=== PATIENT | female | born 1985 ===

== ENCOUNTER 2022-01-17 10:59 | Emergency (ER) | payer OTHER, SELFPAY ==
--- NOTE | ~2022-01-17 | CT_ITS ---
EXAMINATION: CT ABDOMEN AND PELVIS WITHOUT CONTRAST CLINICAL INFORMATION: Left lower quadrant pain COMPARISON: None TECHNIQUE: Multidetector volumetric imaging was performed from the superior aspect of the liver through the pubic symphysis. Sagittal and coronal reformatted images were obtained on the technologist's workstation. This CT examination was performed using dose optimization techniques as appropriate, variously including the following: *Automated exposure control *Adjustment of mA and/or kV according to patient size (this includes techniques or standardized protocols for targeted exams where dose is matched to indication/reason for exam; i.e. extremities or head) *Use of iterative reconstruction technique DLP: 514 mGy-cm FINDINGS: LUNG BASES: The visualized lung bases are unremarkable. LIVER, GALLBLADDER, AND BILIARY TREE: The liver is normal in size, shape, and attenuation. No focal hepatic lesion or biliary ductal dilatation is present. The gallbladder is unremarkable with no evidence of radiopaque gallstones, gallbladder wall thickening, or obvious pericholecystic inflammatory changes. PANCREAS: Unremarkable. SPLEEN: Unremarkable. ADRENAL GLANDS: Unremarkable. KIDNEYS AND URETERS: The kidneys are normal in size, shape, and attenuation. No hydronephrosis, hydroureter, or calculi seen. No perinephric stranding. BLADDER: Unremarkable. GASTROINTESTINAL TRACT: There is focal circumferential thickening of a short segment of colon centered at the descending colon sigmoid junction. There are no diverticula. There is mild pericolonic stranding but no definite fluid collection or extraluminal air. Pattern is worrisome for a mass lesion such as adenocarcinoma as opposed to focal colitis based on overall relative short segment of involvement and morphologic changes. No obstruction. No other focal abnormality. Normal appendix. ABDOMINAL WALL: No significant hernia is appreciated. LYMPH NODES: Normal. VASCULAR: Unremarkable. PELVIC VISCERA: Unremarkable. OSSEOUS STRUCTURES: Unremarkable. CT/CT abdomen pelvis wo IV con IMPRESSION: Circumferential focal thickening left colon as above. Appearance is highly suspicious for colonic adenocarcinoma as opposed to colitis. No diverticular disease. Lower GI assessment indicated. Fleischner guidelines were followed.
[2022-01-17 11:11] VITALS: BP 141/80; PULSE 128; RESP 18; TEMP 35.5; O2SAT 100; BMI 26.4
[2022-01-17 12:51] LABS: MANUAL DIFF FLAG NO
[2022-01-17 12:52] LABS: Basophils Percent Auto 0.2 % (0-2); Eosinophils Absolute Auto 0.1 X10*3/uL (0.0-0.4); Hematocrit 39.4 % (37.0-47.0); Imm Gran Abs Auto 0.04 X10*3/uL (0.00-0.03); Imm Gran Pct Auto 0.4 % (0.0-0.4); Lymphocytes Absolute Auto 1.1 X10*3/uL (1.2-4.9); Lymphocytes Percent Auto 9.5 % (20-40); Mean Corpuscular Hemoglobin 29.6 pg (27.0-33.0); Mean Corpuscular Volume 89.7 fL (80.0-98.0); Mean Platelet Volume 9.3 fL (9.4-12.3); Monocytes Absolute Auto 0.5 X10*3/uL (0.1-1.2); Monocytes Percent Auto 4.6 % (2-11); Neutrophils Absolute Auto 9.6 x10*3/uL (2.0-8.3); Neutrophils Percent Auto 84.3 % (45-73); Platelet Count 321 X10*3/uL (160-400); Red Blood Count 4.39 X10*6/uL (4.20-5.50); Red Cell Distribution Width 12.9 % (11.0-16.0); White Blood Count 11.4 X10*3/uL (4.8-10.8)
[2022-01-17 13:13] LABS: Alanine Aminotransferase 12 U/L (0-31); Albumin Level 4.3 g/dL (3.5-5.0); Alkaline Phosphatase 86 U/L (39-117); Anion Gap 13 (12-20); Aspartate Amino Transferase 18 U/L (5-31); Bilirubin Direct 0.3 mg/dL (0.0-0.5); Bilirubin Total 0.9 mg/dL (0.0-1.0); Blood Urea Nitrogen 10 mg/dL (9-16); Calcium 9.4 mg/dL (8.4-10.2); Carbon Dioxide 27 mmol/L (22-29); Chloride 103 mmol/L (96-108); Creatinine Clr Calc Pharmacy 89.3; Estimated Glomerular Filt Rate > 60; Glucose Random 98 mg/dL (60-115); Lipase 26 U/L (8-78); Potassium 4.2 mmol/L (3.3-5.1); Sodium 139 mmol/L (135-145); Total Protein 7.7 g/dL (6.5-8.0)
--- NOTE | 2022-01-17 19:00 | ED_ITS ---
HPI - Abdominal Pain General Chief Complaint: Nausea/Vomiting/Diarrhea Stated Complaint: Blood in stool Time Seen by Provider: 01/17/22 18:56 Source: patient Mode of arrival: ambulatory Limitations: no limitations History of Present Illness HPI narrative: patient with no significant past medical history had some drinks yesterday noticed pain in lower abdomen followed by loose bowels with slight amount of blood again she had earlier today small amount of bright red blood with lower abdominal pain vomited 1 time at this time complaining of lower abdominal pain with no nausea or vomiting Related Data Previous Rx's Medication Instructions Recorded ciprofloxacin HCl 500 mg tablet 500 mg PO BID #20 tabs 01/17/22 (Cipro) metronidazole 500 mg tablet 500 mg PO BID 10 days #20 tabs 01/17/22 tramadol 50 mg tablet 50 mg PO Q6H PRN pain #20 tabs 01/17/22 Allergies Allergy/AdvReac Type Severity Reaction Status Date / Time No Known Allergies Allergy Verified 01/17/22 11:14 Review of Systems Review of Systems Yes all other systems are reviewed and are negative [facility] Social History Social History Advance Directives: No Advance Directives Information Provided: Yes Physical Exam ED Vital Signs: Vital Signs - 24 hr 01/17/22 11:11 01/17/22 20:21 Temperature 96 F L 98.6 F Pulse Rate 128 H 106 H Respiratory Rate 18 18 Blood Pressure 141/80 H 125/72 Pulse Oximetry 100 100 Oxygen Delivery Method Room Air Room Air BMI result Body Mass Index 26.4 Appearance: Alert. Oriented X3. No acute distress. Eyes: PERRLA, No Nystagmus ENT: Pharynx normal. Oral Mucosa moist Neck: Normal inspection. Neck supple. CVS: Normal heart rate and rhythm. Pulses normal. Respiratory: No respiratory distress. Equal air entry bilateral, no wheezing/rales/rhonchi Abdomen: Soft and deep tenderness left lower quadrant Bowel sounds are present, no mass palpable, no CVA tenderness Skin: Skin warm and dry. Normal skin color. Normal skin turgor. Extremities: No lower extremity edema. No calf tenderness Neuro: Oriented X 3. No motor deficit. No sensory deficit.No cerebellar signs , cranial nerves II-XII intact MDM - Abdominal Pain MDM Narrative Medical decision making narrative: Patient to slight leukocytosis with left lower abdominal pain with slight amount of blood in the stool CT scan done which showed some facial focal thickening of left colon highly suspicious for colonic adenoma carcinoma versus colitis. At this time patient we will give patient Levaquin and Flagyl follow-up with electrical transmission engineer for sigmoidoscopy Differential Diagnosis Differential diagnosis: Likely abdominal pain, diverticulitis and gastroenteritis Lab Data Attestation: I reviewed the patient's lab results. Result diagrams: 01/17/22 12:48 01/17/22 12:48 Labs: Lab Results 01/17/22 01/17/22 Range/Units 12:48 12:48 WBC 11.4 H (4.8-10.8) X10*3/uL RBC 4.39 (4.20-5.50) X10*6/uL Hgb 13.0 (12.0-16.0) g/dl Hct 39.4 (37.0-47.0) % MCV 89.7 (80.0-98.0) fL MCH 29.6 (27.0-33.0) pg MCHC 33.0 (31.0-35.0) g/dl RDW 12.9 (11.0-16.0) % Plt Count 321 (160-400) X10*3/uL MPV 9.3 L (9.4-12.3) fL Immature Gran % (Auto) 0.4 (0.0-0.4) % Neut % (Auto) 84.3 H (45-73) % Lymph % (Auto) 9.5 L (20-40) % [place] % (Auto) 4.6 (2-11) % Eos % (Auto) 1.0 (0-4) % Baso % (Auto) 0.2 (0-2) % Lymph # (Auto) 1.1 L (1.2-4.9) X10*3/uL [place] # (Auto) 0.5 (0.1-1.2) X10*3/uL Eos # (Auto) 0.1 (0.0-0.4) X10*3/uL Baso # (Auto) 0.0 (0.0-0.2) X10*3/uL Abs Immat Gran (auto) 0.04 H (0.00-0.03) X10*3/uL Absolute Neuts (auto) 9.6 H (2.0-8.3) x10*3/uL Absolute Nucleated RBC 0.000 (0.0-0.012) X10*3/uL Nucleated RBC % (auto) 0.0 (0.0-0.2) /100WBC Sodium 139 (135-145) mmol/L Potassium 4.2 (3.3-5.1) mmol/L Chloride 103 (96-108) mmol/L Carbon Dioxide 27 (22-29) mmol/L Anion Gap 13 (12-20) BUN 10 (9-16) mg/dL Creatinine 0.75 (0.5-1.4) mg/dL Estim Creat Clear Calc 89.3 Estimated GFR > 60 Random Glucose 98 (60-115) mg/dL Calcium 9.4 (8.4-10.2) mg/dL Total Bilirubin 0.9 (0.0-1.0) mg/dL Direct Bilirubin 0.3 (0.0-0.5) mg/dL AST 18 (5-31) U/L ALT 12 (0-31) U/L Alkaline Phosphatase 86 (39-117) U/L Total Protein 7.7 (6.5-8.0) g/dL Albumin 4.3 (3.5-5.0) g/dL Lipase 26 (8-78) U/L Beta HCG, Quant < 2 mIU/mL Discharge Plan Discharge Clinical Impression: Colitis Patient Disposition: Home, Self-Care Instructions: Colitis (ED) Additional Instructions: Drink plenty of fluids and take antibiotics as prescribed Follow-up with electrical transmission engineer for further evaluation Report to the ER if worsening of the pain/bleeding Prescriptions: New ciprofloxacin HCl [Cipro] 500 mg tablet 500 mg PO BID Qty: 20 0RF metronidazole 500 mg tablet 500 mg PO BID 10 Days Qty: 20 0RF tramadol 50 mg tablet 50 mg PO Q6H PRN (Reason: pain) Qty: 20 0RF Referrals: Kristy Ramirez MD [Physician] - 1 week Interventions: ED Discharge Assessment Last Done: 01/17/22 21:23 Discharge Date/Time: 01/17/22 21:24
[2022-01-17 20:11] LABS: HCG Quantitative < 2 mIU/mL
[2022-01-17 20:21] VITALS: BP 125/72; PULSE 106; RESP 18; TEMP 37; O2SAT 100
[2022-01-17] MEDS: traMADoL HCL 50 MG TABLET PO (21:20)
[2022-01-17] MEDS: metroNIDAZOLE 500 MG TABLET PO (21:20)
[2022-01-17] MEDS: levoFLOXacin 500 MG TABLET PO (21:20)
== END 2022-01-17 21:24 | disposition home or self-care (01) ==
PROVIDERS: Emergency Provider Internal Medicine; PCP Internal Medicine
DX: K52.9 Noninfective gastroenteritis and colitis, unspecified (principal); R11.2 Nausea with vomiting, unspecified; R10.30 Lower abdominal pain, unspecified; Z79.899 Other long term (current) drug therapy
CPT/HCPCS: 36415; 74176; 80048; 80076; 83690; 84702; 85025; 99284

== ENCOUNTER 2022-07-21 08:05 | Emergency (ER) | payer OTHER, SELFPAY ==
--- NOTE | ~2022-07-21 | CT_ITS ---
EXAMINATION: CT ABDOMEN AND PELVIS WITHOUT CONTRAST CLINICAL INFORMATION: Right flank pain COMPARISON: CT abdomen pelvis 01/17/2022 TECHNIQUE: Multidetector volumetric imaging was performed from the superior aspect of the liver through the pubic symphysis. Sagittal and coronal reformatted images were obtained on the technologist's workstation. This CT examination was performed using dose optimization techniques as appropriate, variously including the following: *Automated exposure control *Adjustment of mA and/or kV according to patient size (this includes techniques or standardized protocols for targeted exams where dose is matched to indication/reason for exam; i.e. extremities or head) *Use of iterative reconstruction technique DLP: 483 mGy-cm FINDINGS: LUNG BASES: The visualized lung bases are unremarkable. LIVER, GALLBLADDER, AND BILIARY TREE: The liver is normal in size, shape, and attenuation. No focal hepatic lesion or biliary ductal dilatation is present. The gallbladder is unremarkable with no evidence of radiopaque gallstones, gallbladder wall thickening, or obvious pericholecystic inflammatory changes. PANCREAS: Unremarkable. SPLEEN: Unremarkable. ADRENAL GLANDS: Unremarkable. KIDNEYS AND URETERS: The kidneys are normal in size, shape, and attenuation. No hydronephrosis, hydroureter, or calculi seen. No perinephric stranding. BLADDER: Unremarkable. GASTROINTESTINAL TRACT: The small and large bowel are unremarkable aside from diffuse colonic diverticula present at the junction of the descending colon and sigmoid.. The previously seen short segment of descending colon with associated inflammatory change has resolved. Presumably, this was diverticulitis rather than carcinoma. The appendix is unremarkable. ABDOMINAL WALL: No significant hernia is appreciated. LYMPH NODES: Normal. VASCULAR: Unremarkable. PELVIC VISCERA: The uterus and adnexa are unremarkable. OSSEOUS STRUCTURES: Unremarkable. CT/CT abdomen pelvis wo IV con IMPRESSION: A cause for the patient's right flank pain has not been found. There is no nephrolithiasis. Fleischner guidelines were followed.
[2022-07-21 08:07] VITALS: BP 116/79; PULSE 110; RESP 16; TEMP 36.2; O2SAT 100; BMI 25.4
[2022-07-21 08:32] LABS: Appearance Urine Cloudy; Color Urine Yellow; Glucose Urine UA Negative (Negative); Leukocyte Esterase Urine Negative (Negative); Nitrite Urine Negative (Negative); UMIC TRIGGER UACC YES; Urine Blood Moderate (2+) (Negative); Urine Ketones Negative (Negative); Urine Protein Negative (Neg-Trace)
--- NOTE | 2022-07-21 08:32 | PC.NURSE ---
Patient alert and oriented, able to make needs known. Patient here with back pain that radiates around to her groin area. Patient states that she took approximately 600mg of ibuprofen this morning at 0700. No nausea or vomiting noted at this time.
[2022-07-21 08:34] LABS: UPreg QC Valid YES; Urine Pregnancy NEGATIVE (NEGATIVE)
[2022-07-21 08:38] LABS: Bacteria Urine 2+ (None Seen); Hyaline Casts Urine 0-2 /LPF (0-2); Squamous Epithelial Cell Urine >20 /HPF (0-2); WBC Urine 0-5 /HPF (0-5)
--- NOTE | 2022-07-21 08:40 | ED_ITS ---
HPI - Abdominal Pain General Chief Complaint: Abdominal Pain Stated Complaint: R back pain rad to front Time Seen by Provider: 07/21/22 08:21 Source: patient Mode of arrival: ambulatory Limitations: no limitations History of Present Illness HPI narrative: This is a 37 years old female presented to the emergency department complaining of right flank pain x2 days denies any fever vomiting and diarrhea MD elicited complaint: flank pain Pertinent past history: none Onset (ago): day(s) (2) Pain Consistency: constant Location: R flank Severity: moderate Migration to: no migration Exacerbating factors: nothing Relieving factors: nothing Related Data Previous Rx's Medication Instructions Recorded ciprofloxacin HCl 500 mg tablet 500 mg PO BID #20 tabs 01/17/22 (Cipro) metronidazole 500 mg tablet 500 mg PO BID 10 days #20 tabs 01/17/22 tramadol 50 mg tablet 50 mg PO Q6H PRN pain #20 tabs 01/17/22 naproxen 500 mg tablet (Naprosyn) 500 mg PO BID PRN PAIN #20 tabs 07/21/22 Allergies Allergy/AdvReac Type Severity Reaction Status Date / Time No Known Allergies Allergy Verified 01/17/22 11:14 Review of Systems Constitutional: Reports no additional constitutional complaints Cardiovascular: Reports no additional cardiovascular complaints Gastrointestinal: Reports no additional gastrointestinal complaints Musculoskeletal: Reports no additional musculoskeletal complaints PMFSH Past Medical History Attestation statement: The following information was validated with the patient. Social History Social History Alcohol intake: current Alcohol intake frequency: holidays/special occasions only Smoked in Last 30 Days: No Use of substances other than those prescribed or required for medical reasons: No Advance Directives: No Advance Directives Information Provided: No Physical Exam ED Vital Signs: Vital Signs - 24 hr 07/21/22 08:07 07/21/22 08:53 07/21/22 10:43 Temperature 97.2 F 98.1 F 98.6 F Pulse Rate 110 H 90 81 Respiratory Rate 16 16 14 Blood Pressure 116/79 121/69 105/63 Pulse Oximetry 100 100 100 Oxygen Delivery Method Room Air Room Air Room Air BMI result Body Mass Index 25.4 Const General: cooperative Nutritional Appearance: average body habitus and well nourished Orientation/consciousness: patient oriented x3 Limitations: no limitations HENMT Head: Yes normal to inspection Face and sinus: Yes normal facial exam Mouth: Normal oral and palatal mucosa present Neck Neck: Yes full ROM Chest Chest palpation & inspection: normal inspection of the chest Resp Effort & Inspection: normal respiratory effort Auscultation: clear to auscultation bilaterally Cardio Jugular venous distension: no JVD Rate: regular rate Rhythm: regular rhythm GI Inspection: Yes normal to inspection Palpation (GI): Soft to palpation Auscultation: normal bowel sounds Skin General skin exam: no rashes or lesions noted, elasticity normal and turgor normal Lesions: no lesions Rashes: no rashes Neuro General: patient oriented x3 Cranial nerves: Yes CN's II-XII intact bilaterally Course Reevaluation(s) Reevaluation #1: She is feeling much better at this time a workup is negative anticipate discharge Time: 10:33 Medical Decision Making Medical Decision Making [facility] Narrative: Patient presented with the right flank pain radiated to the right lower quadrant this will get imaging labs and reassess Differential Diagnosis Differential Diagnoses: The differential diagnosis associated with the presen tation includes Differential diagnosis appendicitis/a kidney stone/colitis Admission/Observation Consideration of admission/observation: Escalation of care including admission/observation considered Lab Data [facility] Lab Attestation statement: I reviewed the patient's lab results. 07/21/22 08:49 07/21/22 08:49 Labs: Lab Results 07/21/22 07/21/22 07/21/22 Range/Units 08:14 08:15 08:49 WBC 8.4 (4.8-10.8) X10*3/uL RBC 4.49 (4.20-5.50) X10*6/uL Hgb 13.0 (12.0-16.0) g/dl Hct 40.2 (37.0-47.0) % MCV 89.5 (80.0-98.0) fL MCH 29.0 (27.0-33.0) pg MCHC 32.3 (31.0-35.0) g/dl RDW 12.5 (11.0-16.0) % Plt Count 296 (160-400) X10*3/uL MPV 9.7 (9.4-12.3) fL Immature Gran % (Auto) 0.1 (0.0-0.4) % Neut % (Auto) 71.9 (45-73) % Lymph % (Auto) 19.8 L (20-40) % [place] % (Auto) 6.5 (2-11) % Eos % (Auto) 1.3 (0-4) % Baso % (Auto) 0.4 (0-2) % Lymph # (Auto) 1.7 (1.2-4.9) X10*3/uL [place] # (Auto) 0.6 (0.1-1.2) X10*3/uL Eos # (Auto) 0.1 (0.0-0.4) X10*3/uL Baso # (Auto) 0.0 (0.0-0.2) X10*3/uL Abs Immat Gran (auto) 0.01 (0.00-0.03) X10*3/uL Absolute Neuts (auto) 6.1 (2.0-8.3) x10*3/uL Absolute Nucleated RBC 0.000 (0.0-0.012) X10*3/uL Nucleated RBC % (auto) 0.0 (0.0-0.2) /100WBC Sodium (135-145) mmol/L Potassium (3.3-5.1) mmol/L Chloride (96-108) mmol/L Carbon Dioxide (22-29) mmol/L Anion Gap (12-20) BUN (9-16) mg/dL Creatinine (0.5-1.4) mg/dL Estim Creat Clear Calc Estimated GFR Random Glucose (60-115) mg/dL Calcium (8.4-10.2) mg/dL Total Bilirubin (0.0-1.0) mg/dL AST (5-31) U/L ALT (0-31) U/L Alkaline Phosphatase (39-117) U/L Total Protein (6.5-8.0) g/dL Albumin (3.5-5.0) g/dL Urine Color Yellow Urine Appearance Cloudy Urine pH 6.0 (5.0-9.0) Ur Specific [place] 1.020 (1.005-1.025) Urine Protein Negative (Neg-Trace) mg/dL Urine Glucose (UA) Negative (Negative) mg/dL Urine Ketones Negative (Negative) mg/dL Urine Blood Moderate (2+) H (Negative) Urine Nitrite Negative (Negative) Ur Leukocyte Esterase Negative (Negative) Urine RBC 11-20 H (0-2) /HPF Urine WBC 0-5 (0-5) /HPF Ur Squamous Epith Cells >20 (0-2) /HPF Urine Bacteria 2+ (None Seen) Hyaline Casts 0-2 (0-2) /LPF Urine Test NEGATIVE (NEGATIVE) 07/21/22 Range/Units 08:49 WBC (4.8-10.8) X10*3/uL RBC (4.20-5.50) X10*6/uL Hgb (12.0-16.0) g/dl Hct (37.0-47.0) % MCV (80.0-98.0) fL MCH (27.0-33.0) pg MCHC (31.0-35.0) g/dl RDW (11.0-16.0) % Plt Count (160-400) X10*3/uL MPV (9.4-12.3) fL Immature Gran % (Auto) (0.0-0.4) % Neut % (Auto) (45-73) % Lymph % (Auto) (20-40) % [place] % (Auto) (2-11) % Eos % (Auto) (0-4) % Baso % (Auto) (0-2) % Lymph # (Auto) (1.2-4.9) X10*3/uL [place] # (Auto) (0.1-1.2) X10*3/uL Eos # (Auto) (0.0-0.4) X10*3/uL Baso # (Auto) (0.0-0.2) X10*3/uL Abs Immat Gran (auto) (0.00-0.03) X10*3/uL Absolute Neuts (auto) (2.0-8.3) x10*3/uL Absolute Nucleated RBC (0.0-0.012) X10*3/uL Nucleated RBC % (auto) (0.0-0.2) /100WBC Sodium 139 (135-145) mmol/L Potassium 4.1 (3.3-5.1) mmol/L Chloride 105 (96-108) mmol/L Carbon Dioxide 27 (22-29) mmol/L Anion Gap 11 L (12-20) BUN 16 (9-16) mg/dL Creatinine 0.70 (0.5-1.4) mg/dL Estim Creat Clear Calc 93.2 Estimated GFR > 60 Random Glucose 96 (60-115) mg/dL Calcium 9.1 (8.4-10.2) mg/dL Total Bilirubin 0.7 (0.0-1.0) mg/dL AST 18 (5-31) U/L ALT 8 (0-31) U/L Alkaline Phosphatase 66 (39-117) U/L Total Protein 7.3 (6.5-8.0) g/dL Albumin 4.1 (3.5-5.0) g/dL Urine Color Urine Appearance Urine pH (5.0-9.0) Ur Specific [place] (1.005-1.025) Urine Protein (Neg-Trace) mg/dL Urine Glucose (UA) (Negative) mg/dL Urine Ketones (Negative) mg/dL Urine Blood (Negative) Urine Nitrite (Negative) Ur Leukocyte Esterase (Negative) Urine RBC (0-2) /HPF Urine WBC (0-5) /HPF Ur Squamous Epith Cells (0-2) /HPF Urine Bacteria (None Seen) Hyaline Casts (0-2) /LPF Urine Test (NEGATIVE) Independent Interpretation I performed an independent interpretation of an: CT Scan Interpretation: Not acute disease Radiology Impression Discussion of test interpretation with radiology: I have reviewed the radiologist's reading. Radiologist Impression: BLADDER: Unremarkable.? GASTROINTESTINAL TRACT: The small and large bowel are unremarkable aside from diffuse colonic diverticula present at the junction of the descending colon and sigmoid.. The previously seen short segment of descending colon with associated inflammatory change has resolved. Presumably, this was diverticulitis rather than carcinoma. The appendix is unremarkable.? ABDOMINAL WALL: No significant hernia is appreciated.? LYMPH NODES: Normal. VASCULAR: Unremarkable. PELVIC VISCERA: The uterus and adnexa are unremarkable.? OSSEOUS STRUCTURES: Unremarkable.? CT/CT abdomen pelvis wo IV con IMPRESSION: A cause for the patient's right flank pain has not been found. There is no nephrolithiasis. ? Fleischner guidelines were followed. Dictated By: Charanjit Blount MD Signed By: <Electronically signed by Charanjit Blount MD in [place]> 07/21/22 0937 DD/ 0905 Medications Administered Discontinued Medications Generic Name Dose Route Start Last Admin Trade Name Freq PRN Reason Stop Dose Admin Sodium Chloride 1,000 mls @ 999 mls/hr 07/21/22 08:45 07/21/22 10:32 Ns IVCONT 07/21/22 09:45 Infused .Q1H1M AYLIN Infusion Discharge Plan Discharge Clinical Impression: Abdominal pain Patient Disposition: Home, Self-Care Instructions: Abdominal Pain (ED) Additional Instructions: Follow-up with your primary care physician return if you worse any concern Prescriptions: New naproxen [Naprosyn] 500 mg tablet 500 mg PO BID PRN (Reason: PAIN) Qty: 20 0RF No Action ciprofloxacin HCl [Cipro] 500 mg tablet 500 mg PO BID Qty: 20 0RF metronidazole 500 mg tablet 500 mg PO BID 10 Days Qty: 20 0RF tramadol 50 mg tablet 50 mg PO Q6H PRN (Reason: pain) Qty: 20 0RF Referrals: Carrillo Hanna III, MD [Primary Care Provider] - 2 days Interventions: ED Discharge Assessment Last Done: 07/21/22 10:47 Discharge Date/Time: 07/21/22 10:49
[2022-07-21 08:53] VITALS: BP 121/69; PULSE 90; RESP 16; TEMP 36.7; O2SAT 100
[2022-07-21] MEDS: 0.9 % Sodium Chloride 1,000 ML 999 ML IVCONT (08:53)
[2022-07-21 08:54] LABS: MANUAL DIFF FLAG NO
--- NOTE | 2022-07-21 09:00 | PC.NURSE ---
Due to patient taking ibuprofen before coming in toradol will be held for now
[2022-07-21 09:04] LABS: Basophils Percent Auto 0.4 % (0-2); Eosinophils Absolute Auto 0.1 X10*3/uL (0.0-0.4); Eosinophils Percent Auto 1.3 % (0-4); Hematocrit 40.2 % (37.0-47.0); Imm Gran Abs Auto 0.01 X10*3/uL (0.00-0.03); Imm Gran Pct Auto 0.1 % (0.0-0.4); Lymphocytes Absolute Auto 1.7 X10*3/uL (1.2-4.9); Lymphocytes Percent Auto 19.8 % (20-40); Mean Corpuscular HGB Conc 32.3 g/dl (31.0-35.0); Mean Corpuscular Volume 89.5 fL (80.0-98.0); Mean Platelet Volume 9.7 fL (9.4-12.3); Monocytes Absolute Auto 0.6 X10*3/uL (0.1-1.2); Monocytes Percent Auto 6.5 % (2-11); Neutrophils Absolute Auto 6.1 x10*3/uL (2.0-8.3); Neutrophils Percent Auto 71.9 % (45-73); Platelet Count 296 X10*3/uL (160-400); Red Blood Count 4.49 X10*6/uL (4.20-5.50); Red Cell Distribution Width 12.5 % (11.0-16.0); White Blood Count 8.4 X10*3/uL (4.8-10.8)
[2022-07-21 09:23] LABS: Alanine Aminotransferase 8 U/L (0-31); Albumin Level 4.1 g/dL (3.5-5.0); Alkaline Phosphatase 66 U/L (39-117); Anion Gap 11 (12-20); Aspartate Amino Transferase 18 U/L (5-31); Bilirubin Total 0.7 mg/dL (0.0-1.0); Blood Urea Nitrogen 16 mg/dL (9-16); Calcium 9.1 mg/dL (8.4-10.2); Carbon Dioxide 27 mmol/L (22-29); Chloride 105 mmol/L (96-108); Creatinine Clr Calc Pharmacy 93.2; Estimated Glomerular Filt Rate > 60; Glucose Random 96 mg/dL (60-115); Potassium 4.1 mmol/L (3.3-5.1); Sodium 139 mmol/L (135-145); Total Protein 7.3 g/dL (6.5-8.0)
--- NOTE | 2022-07-21 10:33 | PC.NURSE ---
Patient finished fluids and ambulated to the bathroom without issue. Patient with no complaints at this time.
[2022-07-21 10:43] VITALS: BP 105/63; PULSE 81; RESP 14; TEMP 37; O2SAT 100
== END 2022-07-21 10:49 | disposition home or self-care (01) ==
PROVIDERS: Emergency Provider Emergency Medicine; PCP Internal Medicine
DX: M54.50 Low back pain, unspecified (principal); Z79.899 Other long term (current) drug therapy
CPT/HCPCS: 36415; 74176; 80053; 81001; 81025; 85025; 96360; 96361; 99284; 99285

== ENCOUNTER 2022-12-18 15:52 | Emergency (ER) | payer OTHER, SELFPAY ==
--- NOTE | ~2022-12-18 | CT_ITS ---
EXAMINATION: CT ABDOMEN AND PELVIS WITHOUT CONTRAST CLINICAL INFORMATION: Back pain and blood in urine. COMPARISON: CT abdomen/pelvis 07/21/2022. TECHNIQUE: Multidetector volumetric imaging was performed from the superior aspect of the liver through the pubic symphysis. Sagittal and coronal reformatted images were obtained on the technologist's workstation. This CT examination was performed using dose optimization techniques as appropriate, variously including the following: *Automated exposure control *Adjustment of mA and/or kV according to patient size (this includes techniques or standardized protocols for targeted exams where dose is matched to indication/reason for exam; i.e. extremities or head) *Use of iterative reconstruction technique DLP: 441 mGy-cm FINDINGS: The lack of intravenous contrast limits evaluation of the solid visceral organs including the liver, spleen, pancreas, and kidneys. LUNG BASES: No focal consolidation or pleural effusion. LIVER, GALLBLADDER, AND BILIARY TREE: The noncontrast liver is normal in size, shape, and attenuation. No focal hepatic lesion or biliary ductal dilatation is present. The gallbladder is unremarkable with no evidence of radiopaque gallstones, gallbladder wall thickening, or obvious pericholecystic inflammatory changes. PANCREAS: Limited noncontrast examination. No significant peripancreatic fat stranding/free fluid. No main duct dilatation. SPLEEN: Unremarkable. ADRENAL GLANDS: Unremarkable. KIDNEYS AND URETERS: The kidneys are normal in size, shape, and attenuation. No hydronephrosis, hydroureter, or calculi seen. No perinephric stranding. BLADDER: Unremarkable. GASTROINTESTINAL TRACT: The stomach and the small bowel are nondilated. Normal appendix. Colonic diverticulosis without significant pericolonic fat stranding/fluid. No evidence of bowel obstruction. ABDOMINAL WALL: No significant hernia is appreciated. LYMPH NODES: No lymphadenopathy. VASCULAR: Normal caliber abdominal aorta. PELVIC VISCERA: The right ovary is slightly asymmetrically increased in size with the presence of a simple dominant fluid attenuating cyst measuring 2.4 cm. Small volume of free fluid in the pelvis. OSSEOUS STRUCTURES: No acute or aggressive appearing osseous abnormalities. CT/CT abdomen pelvis wo IV con IMPRESSION: 1. No nephrolithiasis or hydronephrosis. 2. Colonic diverticulosis without findings to suspect acute diverticulitis. 3. No evidence of bowel obstruction. 4. Slightly asymmetric increased size of the right ovary with a simple fluid attenuating 2.4 cm cyst, almost certainly benign and for which no imaging follow-up is recommended in an asymptomatic patient. If an acute ovarian pathology is clinically suspected, further evaluation with a dedicated pelvic ultrasound could be obtained. A small amount of free fluid in the pelvis is likely physiologic.
[2022-12-18 17:12] VITALS: BP 129/81; PULSE 92; RESP 16; TEMP 37.6; O2SAT 98; BMI 24.9
--- NOTE | 2022-12-18 17:12 | ED_ITS ---
HPI - General Adult General Chief complaint: Back Pain/Injury Stated complaint: hot flashes, numbness on eye, back pain Time Seen by Provider: 12/18/22 21:29 Source: patient and acute care occupational therapist Mode of arrival: ambulatory Limitations: no limitations History of Present Illness HPI narrative: 37-year-old female came in for evaluation of back pain and hot flashes started today, patient went to 6 [place] today was slightly hot outside when she started to have a mid back pain that shoots to the whole entire back and patient also describing with the pain hot flashes, patient never had this symptoms in the past, no nausea, no vomiting, decline chance of pain , no dysuria, no frequency urination. Related Data Previous Rx's Medication Instructions Recorded ciprofloxacin HCl 500 mg tablet 500 mg PO BID #20 tabs 01/17/22 (Cipro) metronidazole 500 mg tablet 500 mg PO BID 10 days #20 tabs 01/17/22 tramadol 50 mg tablet 50 mg PO Q6H PRN pain #20 tabs 01/17/22 naproxen 500 mg tablet (Naprosyn) 500 mg PO BID PRN PAIN #20 tabs 07/21/22 Allergies Allergy/AdvReac Type Severity Reaction Status Date / Time No Known Allergies Allergy Verified 12/18/22 17:11 Review of Systems Review of Systems: All other systems are reviewed and are negative Constitutional: Reports as per HPI and Reports no additional constitutional complaints Eyes: Reports as per HPI and Reports no additional eye complaints Reports system reviewed and no additional complaints, except as documented Cardiovascular: Reports as per HPI and Reports no additional cardiovascular complaints Respiratory: Reports as per HPI and Reports no additional respiratory complaints Gastrointestinal: Reports as per HPI and Reports no additional gastrointestinal complaints Genitourinary: Reports no additional female genitourinary complaints Musculoskeletal: Reports no additional musculoskeletal complaints Skin/Breast: Reports system reviewed and no additional complaints, except as docu Psychiatric: Reports no additional psychiatric complaints Endocrine: Reports no additional endocrine complaints Hematologic/Lymphatic: Reports no additional hematologic/lymphatic complaints Allergic/Immunologic: Reports no additional allergic/immunologic complaints Reports system reviewed and no additional complaints, except as documented and Reports Abnormal speech present [facility] Past Medical History Medical History COVID-19 Muscle spasm of back Uterine cancer Surgical History H/O: hysterectomy Social History Social History Alcohol intake: current Alcohol intake frequency: does not drink Smoked in Last 30 Days: No Use of substances other than those prescribed or required for medical reasons: No Advance Directives: No Advance Directives Information Provided: Yes Physical Exam ED Vital Signs: Vital Signs - 24 hr 12/18/22 17:12 12/18/22 18:00 12/18/22 22:40 Temperature 99.7 F 98.1 F 98.9 F Pulse Rate 92 91 87 Respiratory Rate 16 16 Blood Pressure 129/81 128/65 119/77 Pulse Oximetry 98 100 100 Oxygen Delivery Method Room Air Room Air Room Air BMI result Body Mass Index 24.9 Vital signs have been reviewed as appeared to be correct. Blood pressure no rmal. Heart rate normal. Respiration rate normal. Temperature normal. Oxygen saturation normal. Appearance: Alert. Oriented X3. No acute distress. Head: Normal external exam. Normocephalic. Atraumatic. No [place] signs noted. No raccoon eyes noted Eyes: PERRLA. EOMI. Conjunctiva and sclera normal. Eyelids normal. ENT: TM's Normal. Pharynx normal. Uvula midline. Moist mucous membranes. No trismus noted. No drooling noted. No muffled voice noted. Neck: Normal inspection. Neck supple. FROM. No adenopathy. Thyroid Normal. No meningeal signs. No neck mass noted. CVS: Normal heart rate and rhythm. Heart sound normal. No murmurs noted. Pulses normal throughout. Respiratory: No respiratory distress. Painless inspiration. Breath sounds normal. No wheezes/rales/rhonchi noted. Chest nontender. No accessory muscle usage noted or decreased air movement noted. Abdomen: Soft and nontender. Bowel sounds normal in all 4 quadrants. No distention noted. No organomegaly noted. No visible injury noted. Back: No CVA tenderness. Full range of motion noted. Skin: Skin warm and dry. Normal skin color. Normal skin turgor. No rashes/lesions/lacerations noted. Extremities: No lower extremity edema. Extremities exhibit normal range of motion. Extremities nontender. Neuro: Oriented X 3. Cranial nerve exam: II-XII are grossly intact No motor deficit. No sensory deficit. Reflexes normal. Course Course Course Narrative: RME- 37-year-old female presents for evaluation of right flank pain. She also complains of hot flashes? just not feeling well. ? Plan for labs, UA. Reevaluation(s) Reevaluation #1: Back pain and hot flashes, no kidney stone, no UTI. Leukocytosis. Abdomen and pelvis CT is showing no acute intra-abdominal pathology. Will discharge the patient to follow up with PCP. Time: 01:06 Medical Decision Making Differential Diagnosis Differential Diagnoses: The differential diagnosis associated with the presentation includes (Kidney stone, colitis, diverticulitis, UTI, pyelonephritis, , electrolyte abnormality, severe anemia.) Admission/Observation Consideration of admission/observation: Escalation of care including admission/observation considered Lab Data MDM Lab Attestation statement: I reviewed the patient's lab results. 12/18/22 17:33 12/18/22 17:33 Labs: Lab Results 12/18/22 12/18/22 12/18/22 Range/Units 17:33 17:33 17:33 WBC 13.5 H (4.8-10.8) X10*3/uL RBC 4.42 (4.20-5.50) X10*6/uL Hgb 13.1 (12.0-16.0) g/dl Hct 39.7 (37.0-47.0) % MCV 89.8 (80.0-98.0) fL MCH 29.6 (27.0-33.0) pg MCHC 33.0 (31.0-35.0) g/dl RDW 12.6 (11.0-16.0) % Plt Count 324 (160-400) X10*3/uL MPV 9.6 (9.4-12.3) fL Immature Gran % (Auto) 0.3 (0.0-0.4) % Neut % (Auto) 88.8 H (45-73) % Lymph % (Auto) 7.7 L (20-40) % [place] % (Auto) 2.8 (2-11) % Eos % (Auto) 0.1 (0-4) % Baso % (Auto) 0.3 (0-2) % Lymph # (Auto) 1.0 L (1.2-4.9) X10*3/uL [place] # (Auto) 0.4 (0.1-1.2) X10*3/uL Eos # (Auto) 0.0 (0.0-0.4) X10*3/uL Baso # (Auto) 0.0 (0.0-0.2) X10*3/uL Abs Immat Gran (auto) 0.04 H (0.00-0.03) X10*3/uL Absolute Neuts (auto) 12.0 H (2.0-8.3) x10*3/uL Absolute Nucleated RBC 0.000 (0.0-0.012) X10*3/uL Nucleated RBC % (auto) 0.0 (0.0-0.2) /100WBC Sodium 139 (135-145) mmol/L Potassium 3.9 (3.3-5.1) mmol/L Chloride 106 (96-108) mmol/L Carbon Dioxide 26 (22-29) mmol/L Anion Gap 11 L (12-20) BUN 14 (9-16) mg/dL Creatinine 0.76 (0.5-1.4) mg/dL Estim Creat Clear Calc 85.0 Estimated GFR > 60 Random Glucose 100 (60-115) mg/dL Calcium 9.7 D (8.4-10.2) mg/dL Total Bilirubin 0.6 (0.0-1.0) mg/dL AST 16 (5-31) U/L ALT 9 (0-31) U/L Alkaline Phosphatase 65 (39-117) U/L Total Protein 8.0 (6.5-8.0) g/dL Albumin 4.5 (3.5-5.0) g/dL Lipase 21 (8-78) U/L Urine Color Yellow Urine Appearance Clear Urine pH 6.0 (5.0-9.0) Ur Specific [place] 1.010 (1.005-1.025) Urine Protein Negative (Neg-Trace) mg/dL Urine Glucose (UA) Negative (Negative) mg/dL Urine Ketones Negative (Negative) mg/dL Urine Blood Moderate (2+) H (Negative) Urine Nitrite Negative (Negative) Ur Leukocyte Esterase Negative (Negative) Urine RBC 6-10 H (0-2) /HPF Urine WBC 0-5 (0-5) /HPF Ur Squamous Epith Cells 0-2 (0-2) /HPF Urine Bacteria None Seen (None Seen) Hyaline Casts 0-2 (0-2) /LPF Urine Test (NEGATIVE) 12/18/22 Range/Units 17:33 WBC (4.8-10.8) X10*3/uL RBC (4.20-5.50) X10*6/uL Hgb (12.0-16.0) g/dl Hct (37.0-47.0) % MCV (80.0-98.0) fL MCH (27.0-33.0) pg MCHC (31.0-35.0) g/dl RDW (11.0-16.0) % Plt Count (160-400) X10*3/uL MPV (9.4-12.3) fL Immature Gran % (Auto) (0.0-0.4) % Neut % (Auto) (45-73) % Lymph % (Auto) (20-40) % [place] % (Auto) (2-11) % Eos % (Auto) (0-4) % Baso % (Auto) (0-2) % Lymph # (Auto) (1.2-4.9) X10*3/uL [place] # (Auto) (0.1-1.2) X10*3/uL Eos # (Auto) (0.0-0.4) X10*3/uL Baso # (Auto) (0.0-0.2) X10*3/uL Abs Immat Gran (auto) (0.00-0.03) X10*3/uL Absolute Neuts (auto) (2.0-8.3) x10*3/uL Absolute Nucleated RBC (0.0-0.012) X10*3/uL Nucleated RBC % (auto) (0.0-0.2) /100WBC Sodium (135-145) mmol/L Potassium (3.3-5.1) mmol/L Chloride (96-108) mmol/L Carbon Dioxide (22-29) mmol/L Anion Gap (12-20) BUN (9-16) mg/dL Creatinine (0.5-1.4) mg/dL Estim Creat Clear Calc Estimated GFR Random Glucose (60-115) mg/dL Calcium (8.4-10.2) mg/dL Total Bilirubin (0.0-1.0) mg/dL AST (5-31) U/L ALT (0-31) U/L Alkaline Phosphatase (39-117) U/L Total Protein (6.5-8.0) g/dL Albumin (3.5-5.0) g/dL Lipase (8-78) U/L Urine Color Urine Appearance Urine pH (5.0-9.0) Ur Specific [place] (1.005-1.025) Urine Protein (Neg-Trace) mg/dL Urine Glucose (UA) (Negative) mg/dL Urine Ketones (Negative) mg/dL Urine Blood (Negative) Urine Nitrite (Negative) Ur Leukocyte Esterase (Negative) Urine RBC (0-2) /HPF Urine WBC (0-5) /HPF Ur Squamous Epith Cells (0-2) /HPF Urine Bacteria (None Seen) Hyaline Casts (0-2) /LPF Urine Test NEGATIVE (NEGATIVE) Independent Interpretation I performed an independent interpretation of an: CT Scan (Abdomen and pelvis: No acute intra-abdominal pathology.) Radiology Impression Discussion of test interpretation with radiology: I discussed test interpretation with the radiologist Discharge Plan Discharge Clinical Impression: Strain of lumbar region Patient Disposition: Home, Self-Care Instructions: Muscle Strain (ED) Prescriptions: No Action ciprofloxacin HCl [Cipro] 500 mg tablet 500 mg PO BID Qty: 20 0RF metronidazole 500 mg tablet 500 mg PO BID 10 Days Qty: 20 0RF tramadol 50 mg tablet 50 mg PO Q6H PRN (Reason: pain) Qty: 20 0RF naproxen [Naprosyn] 500 mg tablet 500 mg PO BID PRN (Reason: PAIN) Qty: 20 0RF Referrals: Carrillo Hanna III, MD [Primary Care Provider] - Stand Alone Forms: Work/School Release
[2022-12-18 17:38] LABS: MANUAL DIFF FLAG NO
[2022-12-18 17:39] LABS: Basophils Percent Auto 0.3 % (0-2); Eosinophils Percent Auto 0.1 % (0-4); Hematocrit 39.7 % (37.0-47.0); Hemoglobin 13.1 g/dl (12.0-16.0); Imm Gran Abs Auto 0.04 X10*3/uL (0.00-0.03); Imm Gran Pct Auto 0.3 % (0.0-0.4); Lymphocytes Percent Auto 7.7 % (20-40); Mean Corpuscular Hemoglobin 29.6 pg (27.0-33.0); Mean Corpuscular Volume 89.8 fL (80.0-98.0); Mean Platelet Volume 9.6 fL (9.4-12.3); Monocytes Absolute Auto 0.4 X10*3/uL (0.1-1.2); Monocytes Percent Auto 2.8 % (2-11); Neutrophils Percent Auto 88.8 % (45-73); Platelet Count 324 X10*3/uL (160-400); Red Blood Count 4.42 X10*6/uL (4.20-5.50); Red Cell Distribution Width 12.6 % (11.0-16.0); White Blood Count 13.5 X10*3/uL (4.8-10.8)
[2022-12-18 17:40] LABS: Appearance Urine Clear; Color Urine Yellow; Glucose Urine UA Negative (Negative); Leukocyte Esterase Urine Negative (Negative); Nitrite Urine Negative (Negative); UMIC TRIGGER UACC YES; Urine Blood Moderate (2+) (Negative); Urine Ketones Negative (Negative); Urine Protein Negative (Neg-Trace)
[2022-12-18 17:42] LABS: UPreg QC Valid YES; Urine Pregnancy NEGATIVE (NEGATIVE)
[2022-12-18 17:45] LABS: Bacteria Urine None Seen (None Seen); Hyaline Casts Urine 0-2 /LPF (0-2); Squamous Epithelial Cell Urine 0-2 /HPF (0-2); WBC Urine 0-5 /HPF (0-5)
[2022-12-18 18:00] VITALS: BP 128/65; PULSE 91; RESP 16; TEMP 36.7; O2SAT 100
[2022-12-18 18:08] LABS: Alanine Aminotransferase 9 U/L (0-31); Albumin Level 4.5 g/dL (3.5-5.0); Alkaline Phosphatase 65 U/L (39-117); Anion Gap 11 (12-20); Aspartate Amino Transferase 16 U/L (5-31); Bilirubin Total 0.6 mg/dL (0.0-1.0); Blood Urea Nitrogen 14 mg/dL (9-16); Calcium 9.7 mg/dL (8.4-10.2); Carbon Dioxide 26 mmol/L (22-29); Chloride 106 mmol/L (96-108); Estimated Glomerular Filt Rate > 60; Glucose Random 100 mg/dL (60-115); Lipase 21 U/L (8-78); Potassium 3.9 mmol/L (3.3-5.1); Sodium 139 mmol/L (135-145)
[2022-12-18 22:40] VITALS: BP 119/77; PULSE 87; TEMP 37.2; O2SAT 100
== END 2022-12-19 01:30 | disposition home or self-care (01) ==
PROVIDERS: Physician Assistant; Emergency Provider Emergency Medicine; PCP Internal Medicine
DX: S39.012A Strain of muscle, fascia and tendon of lower back, initial encounter (principal); X58.XXXA Exposure to other specified factors, initial encounter; Y93.9 Activity, unspecified; Y92.9 Unspecified place or not applicable; Y99.9 Unspecified external cause status; M54.9 Dorsalgia, unspecified; R31.9 Hematuria, unspecified
CPT/HCPCS: 36415; 74176; 80053; 81001; 81025; 83690; 85025; 99284

== ENCOUNTER 2022-12-25 23:05 | Emergency (ER) | payer OTHER, SELFPAY ==
--- NOTE | 2022-12-25 | ECG_ITS ---
Test Reason : low HR Blood Pressure : / mmHG Vent. Rate : 083 BPM Atrial Rate : 083 BPM P-R Int : 122 ms QRS Dur : 086 ms QT Int : 374 ms P-R-T Axes : 065 067 045 degrees QTc Int : 439 ms Sinus rhythm with Premature supraventricular complexes Otherwise normal ECG When compared with ECG of 29-JUN-2013 20:10, Premature supraventricular complexes are now Present Referred By: Generic ED Physician Electronically Signed By:ITZEL ZEPEDA
[2022-12-25 23:10] VITALS: BP 149/74; PULSE 87; RESP 18; TEMP 36.9; O2SAT 99; BMI 25.2
[2022-12-25 23:47] LABS: MANUAL DIFF FLAG NO
[2022-12-25 23:50] LABS: Basophils Absolute Auto 0.1 X10*3/uL (0.0-0.2); Basophils Percent Auto 0.7 % (0-2); Eosinophils Absolute Auto 0.2 X10*3/uL (0.0-0.4); Eosinophils Percent Auto 1.8 % (0-4); Hematocrit 35.6 % (37.0-47.0); Hemoglobin 11.6 g/dl (12.0-16.0); Imm Gran Abs Auto 0.01 X10*3/uL (0.00-0.03); Imm Gran Pct Auto 0.1 % (0.0-0.4); Lymphocytes Absolute Auto 2.7 X10*3/uL (1.2-4.9); Lymphocytes Percent Auto 33.5 % (20-40); Mean Corpuscular HGB Conc 32.6 g/dl (31.0-35.0); Mean Corpuscular Hemoglobin 29.4 pg (27.0-33.0); Mean Corpuscular Volume 90.4 fL (80.0-98.0); Mean Platelet Volume 9.6 fL (9.4-12.3); Monocytes Absolute Auto 0.6 X10*3/uL (0.1-1.2); Monocytes Percent Auto 6.7 % (2-11); Neutrophils Absolute Auto 4.7 x10*3/uL (2.0-8.3); Neutrophils Percent Auto 57.2 % (45-73); Platelet Count 291 X10*3/uL (160-400); Red Blood Count 3.94 X10*6/uL (4.20-5.50); Red Cell Distribution Width 12.6 % (11.0-16.0); White Blood Count 8.2 X10*3/uL (4.8-10.8)
[2022-12-26 00:02] LABS: Alanine Aminotransferase 6 U/L (0-31); Alkaline Phosphatase 57 U/L (39-117); Anion Gap 10 (12-20); Aspartate Amino Transferase 14 U/L (5-31); Bilirubin Direct 0.1 mg/dL (0.0-0.5); Bilirubin Total 0.4 mg/dL (0.0-1.0); Blood Urea Nitrogen 17 mg/dL (9-16); Calcium 9.2 mg/dL (8.4-10.2); Carbon Dioxide 26 mmol/L (22-29); Chloride 107 mmol/L (96-108); Creatinine Clr Calc Pharmacy 79.1; Estimated Glomerular Filt Rate > 60; Glucose Random 89 mg/dL (60-115); Lipase 24 U/L (8-78); Potassium 3.3 mmol/L (3.3-5.1); Sodium 140 mmol/L (135-145); Total Protein 7.1 g/dL (6.5-8.0)
--- NOTE | 2022-12-26 01:04 | ED.GENADULT ---
HPI - General Adult General Chief complaint: General Medical Stated complaint: ? Low resting heart rate Time Seen by Provider: 12/26/22 01:00 Source: patient Mode of arrival: ambulatory Limitations: no limitations History of Present Illness HPI narrative: Patient with No significant past medical history noticed her heart rate 48 beats per minute on arrival watch no dizziness no chest pain no near-syncope . Patient usual heart rate is in 60s on arrival patient heart rate was in 80s does not take any medication Related Data Previous Rx's Medication Instructions Recorded ciprofloxacin HCl 500 mg tablet 500 mg PO BID #20 tabs 01/17/22 (Cipro) metronidazole 500 mg tablet 500 mg PO BID 10 days #20 tabs 01/17/22 tramadol 50 mg tablet 50 mg PO Q6H PRN pain #20 tabs 01/17/22 naproxen 500 mg tablet (Naprosyn) 500 mg PO BID PRN PAIN #20 tabs 07/21/22 Allergies Allergy/AdvReac Type Severity Reaction Status Date / Time No Known Allergies Allergy Verified 12/18/22 17:11 Review of Systems Review of Systems: Yes all other systems are reviewed and are negative PMFSH Past Medical History Medical History COVID-19 Muscle spasm of back Uterine cancer Surgical History H/O: hysterectomy Social History Social History Alcohol intake: never Smoked in Last 30 Days: No Use of substances other than those prescribed or required for medical reasons: No Advance Directives: No Advance Directives Information Provided: Yes Patient : No Physical Exam ED Vital Signs: Vital Signs - 24 hr 12/25/22 23:10 12/26/22 01:25 Temperature 98.5 F Pulse Rate 87 87 Respiratory Rate 18 16 Blood Pressure 149/74 H Pulse Oximetry 99 98 Oxygen Delivery Method Room Air Room Air BMI result Body Mass Index 25.2 Appearance: Alert. Oriented X3. No acute distress. ENT: Pharynx normal. Oral Mucosa moist Neck: Normal inspection. Neck supple. CVS: Normal heart rate and rhythm. Pulses normal. No murmur or rub Respiratory: No respiratory distress. Equal air entry bilateral, no wheezing/rales/rhonchi Abdomen: Soft and nontender. Bowel sounds are present, no mass palpable, no CVA tenderness Skin: Skin warm and dry. Normal skin color. Normal skin turgor. Extremities: No lower extremity edema. No calf tenderness Neuro: Oriented X 3. Medical Decision Making Medical Decision Making MDM Narrative: Patient with normal vitals after arrival educated about bradycardia which is not significant Lab Data MDM Lab Attestation statement: I reviewed the patient's lab results. 12/25/22 23:42 12/25/22 23:42 Labs: Lab Results 12/25/22 12/25/22 Range/Units 23:42 23:42 WBC 8.2 (4.8-10.8) X10*3/uL RBC 3.94 L (4.20-5.50) X10*6/uL Hgb 11.6 L (12.0-16.0) g/dl Hct 35.6 L (37.0-47.0) % MCV 90.4 (80.0-98.0) fL MCH 29.4 (27.0-33.0) pg MCHC 32.6 (31.0-35.0) g/dl RDW 12.6 (11.0-16.0) % Plt Count 291 (160-400) X10*3/uL MPV 9.6 (9.4-12.3) fL Immature Gran % (Auto) 0.1 (0.0-0.4) % Neut % (Auto) 57.2 (45-73) % Lymph % (Auto) 33.5 (20-40) % [place] % (Auto) 6.7 (2-11) % Eos % (Auto) 1.8 (0-4) % Baso % (Auto) 0.7 (0-2) % Lymph # (Auto) 2.7 (1.2-4.9) X10*3/uL [place] # (Auto) 0.6 (0.1-1.2) X10*3/uL Eos # (Auto) 0.2 (0.0-0.4) X10*3/uL Baso # (Auto) 0.1 (0.0-0.2) X10*3/uL Abs Immat Gran (auto) 0.01 (0.00-0.03) X10*3/uL Absolute Neuts (auto) 4.7 (2.0-8.3) x10*3/uL Absolute Nucleated RBC 0.000 (0.0-0.012) X10*3/uL Nucleated RBC % (auto) 0.0 (0.0-0.2) /100WBC Sodium 140 (135-145) mmol/L Potassium 3.3 (3.3-5.1) mmol/L Chloride 107 (96-108) mmol/L Carbon Dioxide 26 (22-29) mmol/L Anion Gap 10 L (12-20) BUN 17 H (9-16) mg/dL Creatinine 0.82 (0.5-1.4) mg/dL Estim Creat Clear Calc 79.1 Estimated GFR > 60 Random Glucose 89 (60-115) mg/dL Calcium 9.2 (8.4-10.2) mg/dL Total Bilirubin 0.4 (0.0-1.0) mg/dL Direct Bilirubin 0.1 (0.0-0.5) mg/dL AST 14 (5-31) U/L ALT 6 (0-31) U/L Alkaline Phosphatase 57 (39-117) U/L Total Protein 7.1 (6.5-8.0) g/dL Albumin 4.0 (3.5-5.0) g/dL Lipase 24 (8-78) U/L Discharge Plan Discharge Clinical Impression: Bradycardia, sinus Patient Disposition: Home, Self-Care Instructions: Bradycardia (ED) Additional Instructions: Report to the ER/PCP if heart rate less than 40 or feel dizzy with low heart rate Follow with PCP if any concerns Prescriptions: No Action ciprofloxacin HCl [Cipro] 500 mg tablet 500 mg PO BID Qty: 20 0RF metronidazole 500 mg tablet 500 mg PO BID 10 Days Qty: 20 0RF tramadol 50 mg tablet 50 mg PO Q6H PRN (Reason: pain) Qty: 20 0RF naproxen [Naprosyn] 500 mg tablet 500 mg PO BID PRN (Reason: PAIN) Qty: 20 0RF Interventions: ED Discharge Assessment Last Done: 12/26/22 01:37 Discharge Date/Time: 12/26/22 01:38
[2022-12-26 01:25] VITALS: PULSE 87; RESP 16; O2SAT 98
== END 2022-12-26 01:38 | disposition home or self-care (01) ==
PROVIDERS: Emergency Provider Internal Medicine; PCP Internal Medicine
DX: R00.1 Bradycardia, unspecified (principal); Z79.899 Other long term (current) drug therapy
CPT/HCPCS: 36415; 80048; 80076; 83690; 85025; 93005; 99284

== ENCOUNTER 2023-05-08 09:39 | Emergency (ER) | payer OTHER, SELFPAY ==
[2023-05-08 09:42] VITALS: BP 110/75; PULSE 94; RESP 16; TEMP 36.2; O2SAT 97; BMI 23.4
[2023-05-08 09:55] LABS: Appearance Urine Cloudy; Color Urine Yellow; Glucose Urine UA Negative (Negative); Leukocyte Esterase Urine Large (3+) (Negative); Nitrite Urine Negative (Negative); UMIC TRIGGER UACC YES; Urine Blood Moderate (2+) (Negative); Urine Ketones Negative (Negative); Urine Protein Negative (Neg-Trace)
[2023-05-08 09:58] LABS: Bacteria Urine 2+ (None Seen); Hyaline Casts Urine 0-2 /LPF (0-2); RBC Urine >20 /HPF (0-2); Squamous Epithelial Cell Urine 0-2 /HPF (0-2); UACC Culture Trigger YES; WBC Urine >50 /HPF (0-5)
--- NOTE | 2023-05-08 10:33 | ED_ITS ---
HPI - Female Genitourinary General Chief complaint: Urogenital-Female Stated complaint: Pain when urinating Time Seen by Provider: 05/08/23 10:32 Source: patient, RN notes reviewed and old records reviewed Mode of arrival: ambulatory History of Present Illness HPI Narrative: 37-year-old female with a past medical history of uterine CA presenting to the ED complaining of dysuria, odor urine and suprapubic abdominal pain x 2 days. Reports history of UTIs. Denies nausea/vomiting, flank pain, hematuria, vaginal bleeding or discharge Related Data Previous Rx's Medication Instructions Recorded ciprofloxacin HCl 500 mg tablet 500 mg PO BID #20 tabs 01/17/22 (Cipro) metronidazole 500 mg tablet 500 mg PO BID 10 days #20 tabs 01/17/22 tramadol 50 mg tablet 50 mg PO Q6H PRN pain #20 tabs 01/17/22 naproxen 500 mg tablet (Naprosyn) 500 mg PO BID PRN PAIN #20 tabs 07/21/22 nitrofurantoin 100 mg PO Q12H 7 days #14 caps 05/08/23 monohydrate/macrocrystals 100 mg capsule (Macrobid) phenazopyridine 200 mg tablet 200 mg PO TID PRN pain 6 doses #6 05/08/23 (Pyridium) tabs Allergies Allergy/AdvReac Type Severity Reaction Status Date / Time No Known Allergies Allergy Verified 05/08/23 09:42 Review of Systems Review of Systems: Constitutional: No Fever, No Chills Cardiovascular: No Chest Pain, No SOB Respiratory: No Cough Gastrointestinal: No Nausea, No Vomiting, No Diarrhea, + Abdominal pain Genitourinary: +Dysuria, No Urinary Frequency, No Hematuria, No Urinary Incontinence/retention, No Flank Pain Musculoskeletal: No joint pain, No Myalgias Skin: No Skin Lesions, No rash Neuro: No Weakness Yes all other systems are reviewed and are negative Constitutional: Constitutional: Reports as per [facility] Past Medical History Attestation statement: The following information was validated with the patient. Source: old records reviewed Medical History Muscle spasm of back COVID-19 Uterine cancer Surgical History H/O: hysterectomy Social History Social History Alcohol intake: never Advance Directives: No Physical Exam Vital Signs: Vital Signs: Last Vital Signs Temp 97.2 F 05/08/23 09:42 Pulse 94 05/08/23 09:42 Resp 16 05/08/23 09:42 BP 110/75 05/08/23 09:42 Pulse Ox 97 05/08/23 09:42 O2 Del Method Room Air 05/08/23 09:42 BMI result Body Mass Index 23.4 Const: General: cooperative, healthy appearing and no acute distress O rientation/consciousness: patient oriented x3 Limitations: no limitations HEENT: Head: Yes normal to inspection and Yes atraumatic Ears: hearing grossly normal bilaterally General nose exam: Normal external nose present Face and sinus: Yes normal facial exam Eyes: General: appearance normal, both eyes and all related structures EOM: EOMs intact bilaterally Neck: Neck: Yes normal visual inspection and Yes no meningeal signs Resp: Effort & Inspection: normal respiratory effort and no respiratory distress Cardio: Rate: regular rate GI: Inspection: Yes normal to inspection Palpation (GI): Soft to palpation, nontender, no guarding and not rigid : General: Yes no CVA tenderness Back/Spine/Pelvis: Back: no CVA tenderness Skin: Rashes: no rashes Wounds: no wounds Neuro: General: patient oriented x3, tone normal and no meningeal signs Cranial nerves: Yes CN's II-XII intact bilaterally Gait exam (Neuro): Normal gait present Course Course Course Narrative: -UA infected, negative Results discussed with patient including worrisome signs and symptoms and strict return precautions, and when to return to the emergency department. They verbalized understanding and feel safe for discharge at this time. Medical Decision Making Medical Decision Making MDM Narrative: 37-year-old female with a past medical history of uterine CA presenting to the ED complaining of dysuria, odor urine and suprapubic abdominal pain x 2 days. On exam vital signs stable, NAD, nontoxic appearing, abdomen soft/nontender. No CVAT. Concern for UTI. Lower suspicion for pyelo, renal stone, appendicitis/diverticulitis or STI at this time Plan: UA, Please refer to course for remaining clinical decision making, interpretation of labs/imaging results, and discussions with consultants and/or family members. Differential Diagnosis Differential Diagnoses: The differential diagnosis associated with the presentation includes As above Lab Data MDM Lab Attestation statement: I reviewed the patient's lab results. Labs: Lab Results 05/08/23 05/08/23 05/08/23 Range/Units 09:49 09:49 09:49 Urine Color Yellow Cancelled Urine Appearance Cloudy Cancelled Urine pH 8.0 (5.0-9.0) Ur Specific [place] (1.005-1.025) Urine Protein (Neg-Trace) mg/dL Urine Glucose (UA) (Negative) mg/dL Urine Ketones (Negative) mg/dL Urine Blood (Negative) Urine Nitrite (Negative) Ur Leukocyte Esterase (Negative) Urine RBC (0-2) /HPF Urine WBC (0-5) /HPF Urine WBC Clumps Ur Squamous Epith Cells (0-2) /HPF Ur Transition Epith Cell Ur Renal Epithelial Cell Calcium Oxalate Crystal Leucine Crystals Cystine Crystals Tyrosine Crystals Other Crystals Urine Bacteria (None Seen) Urine Parasites Bilirubin Casts Epithelial Casts Fatty Casts Hyaline Casts (0-2) /LPF Granular Casts Waxy Casts Broad Casts RBC Casts WBC Casts Other Casts Urine Trichomonas Urine Yeast Urine Test (NEGATIVE) 05/08/23 05/08/23 05/08/23 Range/Units 09:49 09:49 09:49 Urine Color Urine Appearance Urine pH Cancelled (5.0-9.0) Ur Specific [place] 1.010 Cancelled (1.005-1.025) Urine Protein Negative Cancelled (Neg-Trace) mg/dL Urine Glucose (UA) Negative (Negative) mg/dL Urine Ketones (Negative) mg/dL Urine Blood (Negative) Urine Nitrite (Negative) Ur Leukocyte Esterase (Negative) Urine RBC (0-2) /HPF Urine WBC (0-5) /HPF Urine WBC Clumps Ur Squamous Epith Cells (0-2) /HPF Ur Transition Epith Cell Ur Renal Epithelial Cell Calcium Oxalate Crystal Leucine Crystals Cystine Crystals Tyrosine Crystals Other Crystals Urine Bacteria (None Seen) Urine Parasites Bilirubin Casts Epithelial Casts Fatty Casts Hyaline Casts (0-2) /LPF Granular Casts Waxy Casts Broad Casts RBC Casts WBC Casts Other Casts Urine Trichomonas Urine Yeast Urine Test (NEGATIVE) 05/08/23 05/08/23 05/08/23 Range/Units 09:49 09:49 09:49 Urine Color Urine Appearance Urine pH (5.0-9.0) Ur Specific [place] (1.005-1.025) Urine Protein (Neg-Trace) mg/dL Urine Glucose (UA) Cancelled (Negative) mg/dL Urine Ketones Negative Cancelled (Negative) mg/dL Urine Blood Moderate (2+) H Cancelled (Negative) Urine Nitrite Negative (Negative) Ur Leukocyte Esterase (Negative) Urine RBC (0-2) /HPF Urine WBC (0-5) /HPF Urine WBC Clumps Ur Squamous Epith Cells (0-2) /HPF Ur Transition Epith Cell Ur Renal Epithelial Cell Calcium Oxalate Crystal Leucine Crystals Cystine Crystals Tyrosine Crystals Other Crystals Urine Bacteria (None Seen) Urine Parasites Bilirubin Casts Epithelial Casts Fatty Casts Hyaline Casts (0-2) /LPF Granular Casts Waxy Casts Broad Casts RBC Casts WBC Casts Other Casts Urine Trichomonas Urine Yeast Urine Test (NEGATIVE) 05/08/23 05/08/23 05/08/23 Range/Units 09:49 09:49 09:49 Urine Color Urine Appearance Urine pH (5.0-9.0) Ur Specific [place] (1.005-1.025) Urine Protein (Neg-Trace) mg/dL Urine Glucose (UA) (Negative) mg/dL Urine Ketones (Negative) mg/dL Urine Blood (Negative) Urine Nitrite Cancelled (Negative) Ur Leukocyte Esterase Large (3+) H Cancelled (Negative) Urine RBC >20 H Cancelled (0-2) /HPF Urine WBC >50 H (0-5) /HPF Urine WBC Clumps Ur Squamous Epith Cells (0-2) /HPF Ur Transition Epith Cell Ur Renal Epithelial Cell Calcium Oxalate Crystal Leucine Crystals Cystine Crystals Tyrosine Crystals Other Crystals Urine Bacteria (None Seen) Urine Parasites Bilirubin Casts Epithelial Casts Fatty Casts Hyaline Casts (0-2) /LPF Granular Casts Waxy Casts Broad Casts RBC Casts WBC Casts Other Casts Urine Trichomonas Urine Yeast Urine Test (NEGATIVE) 05/08/23 05/08/23 05/08/23 Range/Units 09:49 09:49 09:49 Urine Color Urine Appearance Urine pH (5.0-9.0) Ur Specific [place] (1.005-1.025) Urine Protein (Neg-Trace) mg/dL Urine Glucose (UA) (Negative) mg/dL Urine Ketones (Negative) mg/dL Urine Blood (Negative) Urine Nitrite (Negative) Ur Leukocyte Esterase (Negative) Urine RBC (0-2) /HPF Urine WBC Cancelled (0-5) /HPF Urine WBC Clumps Cancelled Ur Squamous Epith Cells 0-2 Cancelled (0-2) /HPF Ur Transition Epith Cell Cancelled Ur Renal Epithelial Cell Cancelled Calcium Oxalate Crystal Cancelled Leucine Crystals Cancelled Cystine Crystals Cancelled Tyrosine Crystals Cancelled Other Crystals Cancelled Urine Bacteria 2+ Cancelled (None Seen) Urine Parasites Cancelled Bilirubin Casts Cancelled Epithelial Casts Cancelled Fatty Casts Cancelled Hyaline Casts 0-2 (0-2) /LPF Granular Casts Waxy Casts Broad Casts RBC Casts WBC Casts Other Casts Urine Trichomonas Urine Yeast Urine Test (NEGATIVE) 05/08/23 Range/Units 09:49 Urine Color Urine Appearance Urine pH (5.0-9.0) Ur Specific [place] (1.005-1.025) Urine Protein (Neg-Trace) mg/dL Urine Glucose (UA) (Negative) mg/dL Urine Ketones (Negative) mg/dL Urine Blood (Negative) Urine Nitrite (Negative) Ur Leukocyte Esterase (Negative) Urine RBC (0-2) /HPF Urine WBC (0-5) /HPF Urine WBC Clumps Ur Squamous Epith Cells (0-2) /HPF Ur Transition Epith Cell Ur Renal Epithelial Cell Calcium Oxalate Crystal Leucine Crystals Cystine Crystals Tyrosine Crystals Other Crystals Urine Bacteria (None Seen) Urine Parasites Bilirubin Casts Epithelial Casts Fatty Casts Hyaline Casts Cancelled (0-2) /LPF Granular Casts Cancelled Waxy Casts Cancelled Broad Casts Cancelled RBC Casts Cancelled WBC Casts Cancelled Other Casts Cancelled Urine Trichomonas Cancelled Urine Yeast Cancelled Urine Test NEGATIVE (NEGATIVE) External Record Review External record reviewed: Inpatient record, Office record, Outpatient record, Prior outpatient labs, Prior outpatient radiology, Primary care record and Outside ED record Tests considered The following testing was considered but not selected: As above Prescription Management I considered prescription management with: Pain Medication and Antibiotic Discharge Plan Discharge Clinical Impression: Urinary tract infection Patient Disposition: Home, Self-Care Instructions: Urinary Tract Infection in Women (DC) Additional Instructions: You have a urinary tract infection Macrobid is an antibiotic please take as prescribed Pyridium will help with urinary discomfort Follow-up with her doctor If you have any concern for STI follow-up with tap history or your OBGYN if Symptoms persist or worsening you have fever, abdominal pain or back pain return to the ED Prescriptions: New phenazopyridine [Pyridium] 200 mg tablet 200 mg PO TID PRN (Reason: pain) Qty: 6 6RF nitrofurantoin monohyd/m-cryst [Macrobid] 100 mg capsule 100 mg PO Q12H 7 Days Qty: 14 0RF Rx Instructions: must administer with a meal/food No Action ciprofloxacin HCl [Cipro] 500 mg tablet 500 mg PO BID Qty: 20 0RF metronidazole 500 mg tablet 500 mg PO BID 10 Days Qty: 20 0RF tramadol 50 mg tablet 50 mg PO Q6H PRN (Reason: pain) Qty: 20 0RF naproxen [Naprosyn] 500 mg tablet 500 mg PO BID PRN (Reason: PAIN) Qty: 20 0RF Referrals: Physician,Unknown J [Primary Care Provider] - Interventions: ED Discharge Assessment Last Done: 05/08/23 11:13 Discharge Date/Time: 05/08/23 11:14
[2023-05-08 10:55] LABS: UPreg QC Valid YES; Urine Pregnancy NEGATIVE (NEGATIVE)
== END 2023-05-08 11:14 | disposition home or self-care (01) ==
PROVIDERS: Physician Assistant; Emergency Provider Emergency Medicine
DX: N39.0 Urinary tract infection, site not specified (principal); Z85.42 Personal history of malignant neoplasm of other parts of uterus
CPT/HCPCS: 81001; 81025; 87086; 87088; 87186; 99283

== ENCOUNTER 2024-02-23 14:18 | Emergency (ER) | payer OTHER, SELFPAY ==
--- NOTE | ~2024-02-23 | US_ITS ---
EXAMINATION: US PELVIC AND TRANSVAGINAL CLINICAL INFORMATION: Right-sided pelvic pain. Date of LMP 2 weeks ago. COMPARISON: Selected images of the abdomen and pelvic CT scan of 12/19/2022. Pelvic ultrasound of 10/19/2009 TECHNIQUE: Ultrasound of the pelvis is performed using both transabdominal and transvaginal transducers along with Doppler. Transvaginal imaging is performed due to inadequate visualization transabdominally. FINDINGS: Uterus: The uterus is anteverted and measures 8.6 x 4.6 x 5.3 cm., In length (from fundus to external cervical os), AP and transverse dimensions respectively. Cervical length is approximately 2.9 cm There is trilaminar appearance of the endometrium suggesting periovulatory/late proliferative phase of the menstrual cycle. Endometrial stripe thickness is 1.4 cm. The uterus is smooth in contour and has normal myometrial echogenicity. No visible fibroid. Adnexa: Both ovaries are visualized. Bilateral normal-appearing intraovarian arterial and venous blood flow is documented. Multiple bilateral simple cysts are noted in the ovaries. Right ovary measures 4.5 x 2.5 x 3.3 cm, volume of 19.2 mL. 2 largest anechoic benign cysts are noted in the right ovary measuring 2.5 x 2.6 x 2.7 cm and 1.8 x 1.4 x 1.8 cm. Left ovary measures 3.7 x 2.1 x 2.5 cm., Volume 10.1 mL. A 1.8 x 1.5 x 1.8 cm simple cyst is noted in the left ovary with a few additional smaller simple cysts. There is no evidence of adnexal mass. Small simple free fluid in the cul-de-sac is likely physiologic. Prominent adnexal vascularity is noted bilaterally. US/US pelvic and transvaginal IMPRESSION: 1. No evidence of active ovarian torsion at this time. 2. Multiple bilateral simple ovarian cysts, largest measuring 2.7 cm in the right ovary. The ovarian cysts most likely represent physiologic/functional cysts and no further imaging follow-up of bilateral ovarian cysts is warranted. 3. Prominent adnexal vascularity bilaterally. Recommend clinical correlation for possibility of pelvic congestion syndrome. Electronically signed by: Radha Lindquist MD 02/23/2024 04:43 PM EDT
[2024-02-23 15:04] VITALS: BP 135/71; PULSE 81; RESP 16; TEMP 36.9; O2SAT 100; BMI 23.0
--- NOTE | 2024-02-23 15:07 | ED_ITS ---
HPI - Abdominal Pain General Chief Complaint: Abdominal Pain Stated Complaint: lower abd pain-lower back pain Time Seen by Provider: 02/23/24 17:00 Source: patient Mode of arrival: ambulatory Limitations: no limitations History of Present Illness ED Provider: delaney SUTTON narrative: Patient complaining of right suprapubic pain for last several hours no nausea no vomiting no urinary symptoms no prior history of your ovarian cyst Related Data Previous Rx's ?Medication ?Instructions ?Recorded ciprofloxacin HCl 500 mg tablet 500 mg PO BID #20 tabs 01/17/22 (Cipro) metronidazole 500 mg tablet 500 mg PO BID 10 days #20 tabs 01/17/22 tramadol 50 mg tablet 50 mg PO Q6H PRN pain #20 tabs 01/17/22 naproxen 500 mg tablet (Naprosyn) 500 mg PO BID PRN PAIN #20 tabs 07/21/22 nitrofurantoin 100 mg PO Q12H 7 days #14 caps 05/08/23 monohydrate/macrocrystals 100 mg capsule (Macrobid) phenazopyridine 200 mg tablet 200 mg PO TID PRN pain 6 doses #6 05/08/23 (Pyridium) tabs naproxen 500 mg tablet 500 mg PO Q12H PRN pain (scale 02/23/24 score 4-6) #20 tabs Allergies Allergy/AdvReac Type Severity Reaction Status Date / Time No Known Allergies Allergy Verified 02/23/24 15:09 Review of Systems Review of Systems Yes all other systems are reviewed and are negative PMFSH Past Medical History Medical History Muscle spasm of back COVID-19 Uterine cancer Surgical History H/O: hysterectomy Social History Social History Alcohol intake: never Advance Directives: No Advance Directives Information Provided: No Do you have a plan to hurt others: No Plan Physical Exam ED Vital Signs: Vital Signs - 24 hr 02/23/24 15:04 02/23/24 18:15 Temperature 98.5 F 98.4 F Pulse Rate 81 60 Respiratory Rate 16 18 Blood Pressure 135/71 115/57 L Pulse Oximetry 100 95 Oxygen Delivery Method Room Air Room Air BMI result Body Mass Index 23.0 Appearance: Alert. Oriented X3. No acute distress. Eyes: PERRLA, No Nystagmus ENT: Pharynx normal. Oral Mucosa moist Neck: Normal inspection. Neck supple. CVS: Normal heart rate and rhythm. Pulses normal. Respiratory: No respiratory distress. Equal air entry bilateral, no wheezing/rales/rhonchi Abdomen: Soft and mild tenderness suprapubic area no rebound tenderness or guarding. Bowel sounds are present, no mass palpable, no CVA tenderness Skin: Skin warm and dry. Normal skin color. Normal skin turgor. Extremities: No lower extremity edema. No calf tenderness Neuro: Oriented X 3. Course Course Course Narrative: This is a Rapid Medical Examination (RME) performed by Akbar Blake PA-C in triage. Full HPI, ROS, assessment and treatment plan per primary provider in the Main ED. 38-year-old female presents to the ER for evaluation of 7 hours of right-sided pelvic pain. She had a normal bowel movement today. No vomiting. No fevers. No vaginal discharge. LMP 3 weeks ago. Plan: Lab work, urinalysis, test, pelvic ultrasound Medical Decision Making Medical Decision Making MDM Narrative: Patient with right ovarian cyst likely the cause for the pain no hemorrhagic cyst was seen no torsion was seen in ultrasound Differential Diagnosis Differential Diagnoses: The differential diagnosis associated with the presentation includes Ovarian cyst/pelvis congestion syndrome //UTI/kidney stone/ovarian torsion Lab Data [facility] Lab Attestation statement: I reviewed the patient's lab results. 02/23/24 17:07 02/23/24 17:07 Labs: Lab Results 02/23/24 Range/Units 17:07 WBC 10.2 (4.8-10.8) X10*3/uL RBC 4.12 L (4.20-5.50) X10*6/uL Hgb 12.5 (12.0-16.0) g/dl Hct 36.9 L (37.0-47.0) % MCV 89.6 (80.0-98.0) fL MCH 30.3 (27.0-33.0) pg MCHC 33.9 (31.0-35.0) g/dl RDW 12.5 (11.0-16.0) % Plt Count 286 (160-400) X10*3/uL MPV 9.6 (9.4-12.3) fL Immature Gran % (Auto) 0.3 (0.0-0.4) % Neut % (Auto) 77.8 H (45-73) % Lymph % (Auto) 16.7 L (20-40) % [place] % (Auto) 4.4 (2-11) % Eos % (Auto) 0.5 (0-4) % Baso % (Auto) 0.3 (0-2) % Lymph # (Auto) 1.7 (1.2-4.9) X10*3/uL [place] # (Auto) 0.5 (0.1-1.2) X10*3/uL Eos # (Auto) 0.1 (0.0-0.4) X10*3/uL Baso # (Auto) 0.0 (0.0-0.2) X10*3/uL Abs Immat Gran (auto) 0.03 (0.00-0.03) X10*3/uL Absolute Neuts (auto) 8.0 (2.0-8.3) x10*3/uL Absolute Nucleated RBC 0.000 (0.0-0.012) X10*3/uL Nucleated RBC % (auto) 0.0 (0.0-0.2) /100WBC Sodium 139 (135-145) mmol/L Potassium 3.8 (3.3-5.1) mmol/L Chloride 105 (96-108) mmol/L Carbon Dioxide 28 (22-29) mmol/L Anion Gap 10 L (12-20) BUN 10 (9-16) mg/dL Creatinine 0.73 (0.5-1.4) mg/dL Estim Creat Clear Calc 79.6 Estimated GFR > 60 Random Glucose 92 (60-115) mg/dL Calcium 9.8 D (8.4-10.2) mg/dL Magnesium 1.8 (1.6-2.6) mg/dL Total Bilirubin 0.9 (0.0-1.0) mg/dL Direct Bilirubin 0.3 (0.0-0.5) mg/dL AST 16 (5-31) U/L ALT 10 (0-31) U/L Alkaline Phosphatase 62 (39-117) U/L Total Protein 7.3 (6.5-8.0) g/dL Albumin 4.3 (3.5-5.0) g/dL Urine Color Yellow Urine Appearance Clear Urine pH 6.0 (5.0-9.0) Ur Specific [place] 1.010 (1.005-1.025) Urine Protein Negative (Neg-Trace) mg/dL Urine Glucose (UA) Negative (Negative) mg/dL Urine Ketones Negative (Negative) mg/dL Urine Blood Moderate (2+) H (Negative) Urine Nitrite Negative (Negative) Ur Leukocyte Esterase Negative (Negative) Urine RBC 0-2 (0-2) /HPF Urine WBC 0-5 (0-5) /HPF Ur Squamous Epith Cells 0-2 (0-2) /HPF Urine Bacteria None Seen (None Seen) Hyaline Casts 0-2 (0-2) /LPF Urine Test NEGATIVE (NEGATIVE) Radiology Impression Discussion of test interpretation with radiology: I have reviewed the radiologist's reading. Radiologist Impression: [place] [id number] Ultrasound Report Signed Patient: Ban Staton MR#: [id number] : 1985 Acct:[id number] Age/Sex: 38 / F ADM Date: 02/23/24 Loc: .ED Attending Dr: Ordering Physician: Sanaz Blake Date of Service: 02/23/24 Procedure(s): US pelvic and transvaginal Accession Number(s): [id number] cc: Carrillo Hanna III, MD; Sanaz Blake~ EXAMINATION: US PELVIC AND TRANSVAGINAL CLINICAL INFORMATION: Right-sided pelvic pain. Date of LMP 2 weeks ago. COMPARISON: Selected images of the abdomen and pelvic CT scan of 12/19/2022. Pelvic ultrasound of 10/19/2009 TECHNIQUE: Ultrasound of the pelvis is performed using both transabdominal and transvaginal transducers along with Doppler. Transvaginal imaging is performed due to inadequate visualization transabdominally. FINDINGS: Uterus: The uterus is anteverted and measures 8.6 x 4.6 x 5.3 cm., In length (from fundus to external cervical os), AP and transverse dimensions respectively. Cervical length is approximately 2.9 cm There is trilaminar appearance of the endometrium suggesting periovulatory/late proliferative phase of the menstrual cycle. Endometrial stripe thickness is 1.4 cm. The uterus is smooth in contour and has normal myometrial echogenicity. No visible fibroid. Adnexa: Both ovaries are visualized. Bilateral normal-appearing intraovarian arterial and venous blood flow is documented. Multiple bilateral simple cysts are noted in the ovaries. Right ovary measures 4.5 x 2.5 x 3.3 cm, volume of 19.2 mL. 2 largest anechoic benign cysts are noted in the right ovary measuring 2.5 x 2.6 x 2.7 cm and 1.8 x 1.4 x 1.8 cm. Left ovary measures 3.7 x 2.1 x 2.5 cm., Volume 10.1 mL. A 1.8 x 1.5 x 1.8 cm simple cyst is noted in the left ovary with a few additional smaller simple cysts. There is no evidence of adnexal mass. Small simple free fluid in the cul-de-sac is likely physiologic. Prominent adnexal vascularity is noted bilaterally. US/US pelvic and transvaginal IMPRESSION: 1. No evidence of active ovarian torsion at this time. 2. Multiple bilateral simple ovarian cysts, largest measuring 2.7 cm in the right ovary. The ovarian cysts most likely represent physiologic/functional cysts and no further imaging follow-up of bilateral ovarian cysts is warranted. 3. Prominent adnexal vascularity bilaterally. Recommend clinical correlation for possibility of pelvic congestion syndrome. Electronically signed by: Radha Lindquist MD 02/23/2024 04:43 PM EDT Medications Administered Discontinued Medications Generic Name Dose Route Start Last Admin Trade Name Freq PRN Reason Stop Dose Admin Ketorolac Tromethamine 30 mg 02/23/24 18:02 02/23/24 18:09 Ketorolac Tromethamine 30 Mg/Ml Vial IM 02/23/24 18:03 30 mg ONCE ONE Administration Discharge Plan Discharge Clinical Impression: Pelvic congestion syndrome, Ovarian cyst Patient Disposition: Home, Self-Care Instructions: Ovarian Cyst (ED) Additional Instructions: You were evaluated in the ED today for lower abdominal pain. Your blood work today is reassuring. Your urine is negative for infection. As discussed, the ultrasound of your pelvis shows: US pelvic and transvaginal IMPRESSION: 1. No evidence of active ovarian torsion at this time. 2. Multiple bilateral simple ovarian cysts, largest measuring 2.7 cm in the right ovary. The ovarian cysts most likely represent physiologic/functional cysts and no further imaging follow-up of bilateral ovarian cysts is warranted. 3. Prominent adnexal vascularity bilaterally. Recommend clinical correlation for possibility of pelvic congestion syndrome. You were treated with an anti-inflammatory in the ED today. Naproxen is a pain medication that has been sent to your pharmacy for you to take as needed every 12 hours for pain/discomfort. 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 Return with any new or worsening symptoms. In the case of an emergency call 911. Prescriptions: New naproxen 500 mg tablet 500 mg PO Q12H PRN (Reason: pain (scale score 4-6)) Qty: 20 0RF No Action ciprofloxacin HCl [Cipro] 500 mg tablet 500 mg PO BID Qty: 20 0RF metronidazole 500 mg tablet 500 mg PO BID 10 Days Qty: 20 0RF tramadol 50 mg tablet 50 mg PO Q6H PRN (Reason: pain) Qty: 20 0RF naproxen [Naprosyn] 500 mg tablet 500 mg PO BID PRN (Reason: PAIN) Qty: 20 0RF phenazopyridine [Pyridium] 200 mg tablet 200 mg PO TID PRN (Reason: pain) Qty: 6 6RF nitrofurantoin monohyd/m-cryst [Macrobid] 100 mg capsule 100 mg PO Q12H 7 Days Qty: 14 0RF Rx Instructions: must administer with a meal/food Referrals: [facility] [place] [facility] [place]] Carrillo Hanna III, MD [Primary Care Provider] - Stand Alone Forms: Work/School Release Interventions: ED Discharge Assessment Last Done: 02/23/24 18:15 Discharge Date/Time: 02/23/24 18:15 Print Language: Turkish
--- NOTE | 2024-02-23 16:04 | MHC.EDTECH ---
I was call her twice she didn't answered
[2024-02-23 17:12] LABS: MANUAL DIFF FLAG NO
[2024-02-23 17:13] LABS: Basophils Percent Auto 0.3 % (0-2); Eosinophils Absolute Auto 0.1 X10*3/uL (0.0-0.4); Eosinophils Percent Auto 0.5 % (0-4); Hematocrit 36.9 % (37.0-47.0); Hemoglobin 12.5 g/dl (12.0-16.0); Imm Gran Abs Auto 0.03 X10*3/uL (0.00-0.03); Imm Gran Pct Auto 0.3 % (0.0-0.4); Lymphocytes Absolute Auto 1.7 X10*3/uL (1.2-4.9); Lymphocytes Percent Auto 16.7 % (20-40); Mean Corpuscular HGB Conc 33.9 g/dl (31.0-35.0); Mean Corpuscular Hemoglobin 30.3 pg (27.0-33.0); Mean Corpuscular Volume 89.6 fL (80.0-98.0); Mean Platelet Volume 9.6 fL (9.4-12.3); Monocytes Absolute Auto 0.5 X10*3/uL (0.1-1.2); Monocytes Percent Auto 4.4 % (2-11); Neutrophils Percent Auto 77.8 % (45-73); Platelet Count 286 X10*3/uL (160-400); Red Blood Count 4.12 X10*6/uL (4.20-5.50); Red Cell Distribution Width 12.5 % (11.0-16.0); White Blood Count 10.2 X10*3/uL (4.8-10.8)
[2024-02-23 17:14] LABS: Appearance Urine Clear; Color Urine Yellow; Glucose Urine UA Negative (Negative); Leukocyte Esterase Urine Negative (Negative); Nitrite Urine Negative (Negative); UMIC TRIGGER UACC YES; Urine Blood Moderate (2+) (Negative); Urine Ketones Negative (Negative); Urine Protein Negative (Neg-Trace)
[2024-02-23 17:17] LABS: UPreg QC Valid YES; Urine Pregnancy NEGATIVE (NEGATIVE)
[2024-02-23 17:25] LABS: Bacteria Urine None Seen (None Seen); Hyaline Casts Urine 0-2 /LPF (0-2); RBC Urine 0-2 /HPF (0-2); Squamous Epithelial Cell Urine 0-2 /HPF (0-2); WBC Urine 0-5 /HPF (0-5)
[2024-02-23 17:33] LABS: Alanine Aminotransferase 10 U/L (0-31); Albumin Level 4.3 g/dL (3.5-5.0); Alkaline Phosphatase 62 U/L (39-117); Anion Gap 10 (12-20); Aspartate Amino Transferase 16 U/L (5-31); Bilirubin Direct 0.3 mg/dL (0.0-0.5); Bilirubin Total 0.9 mg/dL (0.0-1.0); Blood Urea Nitrogen 10 mg/dL (9-16); Calcium 9.8 mg/dL (8.4-10.2); Carbon Dioxide 28 mmol/L (22-29); Chloride 105 mmol/L (96-108); Creatinine Clr Calc Pharmacy 79.6; Estimated Glomerular Filt Rate > 60; Glucose Random 92 mg/dL (60-115); Magnesium 1.8 mg/dL (1.6-2.6); Potassium 3.8 mmol/L (3.3-5.1); Sodium 139 mmol/L (135-145); Total Protein 7.3 g/dL (6.5-8.0)
[2024-02-23] MEDS: Ketorolac Tromethamine 30 MG/ML VIAL IM (18:09)
[2024-02-23 18:15] VITALS: BP 115/57; PULSE 60; RESP 18; TEMP 36.9; O2SAT 95
== END 2024-02-23 18:15 | disposition home or self-care (01) ==
PROVIDERS: Physician Assistant; Emergency Provider Internal Medicine; PCP Internal Medicine
DX: N83.201 Unspecified ovarian cyst, right side (principal); N94.89 Other specified conditions associated with female genital organs and menstrual cycle; M54.50 Low back pain, unspecified; R10.2 Pelvic and perineal pain; Z79.899 Other long term (current) drug therapy
CPT/HCPCS: 36415; 76830; 76856; 80048; 80076; 81001; 81025; 83735; 85025; 93975; 96372; 99283; 99284; J1885

== ENCOUNTER 2025-01-24 13:52 | Emergency (ER) | payer OTHER, SELFPAY ==
[2025-01-24 14:09] VITALS: BP 108/64; PULSE 91; RESP 18; TEMP 36.8; O2SAT 100; BMI 24.8
--- NOTE | 2025-01-24 14:10 | ED_ITS ---
HPI - URI/Sore Throat General Chief Complaint: Upper Respiratory Symptoms Stated Complaint: sore throat runny nose Time Seen by Provider: 01/24/25 16:13 Source: patient and RN notes reviewed Mode of arrival: ambulatory Limitations: no limitations History of Present Illness ED Provider: Yuli Marquez PA-C HPI Narrative: This is a 39-year-old female who presents emergency department with complaints of sore throat, runny nose, cough, and body aches which started yesterday. Denies any known fevers or chills. Denies any chest pain, shortness for breath, abdominal pain, nausea, vomiting or diarrhea. No urinary symptoms. No changes in bowel habits. No other complaints or concerns at this time. MD elicited complaint: cough, sore throat and nasal congestion Exacerbating factors: nothing Relieving factors: nothing Associated symptoms: denies other symptoms Related Data Previous Rx's ?Medication ?Instructions ?Recorded ciprofloxacin HCl 500 mg tablet 500 mg PO BID #20 tabs 01/17/22 (Cipro) metronidazole 500 mg tablet 500 mg PO BID 10 days #20 tabs 01/17/22 tramadol 50 mg tablet 50 mg PO Q6H PRN pain #20 ta bs 01/17/22 naproxen 500 mg tablet (Naprosyn) 500 mg PO BID PRN PA IN #20 tabs 07/21/22 nitrofurantoin 100 mg PO Q12H 7 days #14 ca ps 05/08/23 monohydrate/macrocrystals 100 mg capsule (Macrobid) phenazopyridine 200 mg tablet 200 mg PO TID PRN pain 6 doses #6 05/08/23 (Pyridium) tabs naproxen 500 mg tablet 500 mg PO Q12H PRN pain (sca le 02/23/24 score 4-6) #20 tabs Allergies Allergy/AdvReac Type Severity Reaction Status Date / Time No Known Allergies Allergy Verified 01/24/25 14:13 Review of Systems Review of Systems: Constitutional : No Fever, No Chills ENT/Mouth :+sore throat, +Rhinorrhea Eyes: No Eye Pain, No Swelling, No Redness Cardiovascular : No Chest Pain, No SOB Respiratory : No Cough, No Sputum Gastrointestinal : No Nausea, No Vomiting, No Diarrhea, No abdominal Pain Genitourinary : No Dysuria, No Hematuria Musculoskeletal : No joint pain, No Myalgias, No Joint Swelling Skin : No Skin Lesions Neuro : No Weakness, No Numbness, No Headache All other systems reviewed and are negative PMFSH Past Medical History Medical History Muscle spasm of back COVID-19 Uterine cancer Surgical History H/O: hysterectomy Social History Social History Alcohol intake: never Advance Directives: No Advance Directives Information Provided: Yes Physical Exam Exam: Exam: General: Awake, alert, and oriented X3. No acute distress. HEENT: Normal inspection, oropharynx with mild erythema noted posteriorly on the left, uvula is midline, no trismus, drooling or dysphonia. TMs unremarkable. CVS: Normal heart rate and rhythm. Pulses normal. Respiratory: No respiratory distress, lungs clear to auscultation bilaterally. Skin: Warm, dry, no rashes noted to exposed skin. Normal skin color. Normal skin turgor. Extremities: Normal to inspection Neuro: Oriented X 3. No motor deficit. No sensory deficit. Vital Signs: Vital Signs: Last Vital Signs Temp 98.2 F 01/24/25 16:43 Pulse 91 01/24/25 16:43 Resp 18 01/24/25 16:43 BP 108/64 01/24/25 16:43 Pulse Ox 100 01/24/25 16:43 O2 Del Method Room Air 01/24/25 16:43 BMI result Body Mass Index 24.8 Course Course Course Narrative: This is an RME: Additional HPI, ROS, PE not included below will be deferred to primary provider. RME assessment and note performed by: Yuli Marquez PA-C This is a 68-[id number]-female, with a hx of uterine cancer, who presents to the ER with complaints of sore throat, runny nose, cough started yesterday. Plan: Medical Decision Making Medical Decision Making MDM Narrative: This is a 39-year-old female who presents emergency department concerns of sore throat, cough, and congestion which started yesterday. On arrival, vital signs within normal limits. She is speaking full sentences under no acute distress, lungs are clear to auscultation bilaterally. Oropharynx, there is slight erythema noted to the left posterior aspect, uvula is midline, no trismus, drooling, or dysphonia. Speaking in full sentences under no acute distress. Vi ral swabs were obtained, negative. Strep negative. Discussed with patient that symptoms are likely viral in nature. Given strict return precautions, she understands agrees with plan. Patient stable for discharge. Differential Diagnosis Differential Diagnoses: The differential diagnosis associated with the presentation includes Pharyngitis, strep, COVID, flu, viral illness Lab Data Labs: Lab Results 01/24/25 Range/Units 14:49 COVID-19 (MAREK) Negative (Negative) COVID-19 Clin Com See Note Influenza Type A (CLARA) Negative (Negative) Influenza Type B (CLARA) Negative (Negative) Influenza A & B Note See Note S. pyogenes GrpA CLARA Negative (Negative) Discharge Plan Discharge Clinical Impression: Pharyngitis Patient Disposition: Home, Self-Care Instructions: Pharyngitis (ED) Additional Instructions: You were seen in the emergency department today and tested negative for COVID, flu, and strep. You likely have a virus that is causing you to have the symptoms. Drink plenty of fluids get plenty of rest. Alternate between ibuprofen and or Tylenol as needed for pain and symptoms. Saltwater gargles, tea with honey, popsicles, can help with your symptoms. If any new or worsening symptoms occur including but not limited to inability to swallow, severe chest pain or shortness for breath, please seek emergent care. Prescriptions: No Action ciprofloxacin HCl [Cipro] 500 mg tablet 500 mg PO BID Qty: 20 0RF metronidazole 500 mg tablet 500 mg PO BID 10 Days Qty: 20 0RF tramadol 50 mg tablet 50 mg PO Q6H PRN (Reason: pain) Qty: 20 0RF naproxen [Naprosyn] 500 mg tablet 500 mg PO BID PRN (Reason: PAIN) Qty: 20 0RF phenazopyridine [Pyridium] 200 mg tablet 200 mg PO TID PRN (Reason: pain) Qty: 6 6RF nitrofurantoin monohyd/m-cryst [Macrobid] 100 mg capsule 100 mg PO Q12H 7 Days Qty: 14 0RF Rx Instructions: must administer with a meal/food naproxen 500 mg tablet 500 mg PO Q12H PRN (Reason: pain (scale score 4-6)) Qty: 20 0RF Stand Alone Forms: Work/School Release Interventions: ED Discharge Assessment Last Done: 01/24/25 16:43 Discharge Date/Time: 01/24/25 16:43 Print Language: Mongolian
[2025-01-24 15:17] LABS: COVID-19 Test Negative (Negative); IDNOW Serial# 08D9AD1C; IDNOW Serial# 55D5AD1C; IDNOW Serial# 58CA691E; Influenza B2 Negative (Negative); Strep A Nucleic Acid Negative (Negative)
[2025-01-24 16:43] VITALS: BP 108/64; PULSE 91; RESP 18; TEMP 36.8; O2SAT 100
--- OUTSIDE RECORDS SUMMARY | 2025-01-24 17:22 | XMS_ITS | Clinical Summary ---
Author Organization [facility] Address [address] [place] [address] Phone Care Team Providers Care Web Content Developer Name Role Phone Carrillo Hanna MD Primary Care Provider [phone] Allergies No known active allergies Medications ibuprofen (ADVIL,MOTRIN) 800 mg tablet Take 1 tablet (800 mg total) by mouth 1 (one) time each day if needed. 09/23/2023 Active cyclobenzaprine (FLEXERIL) 10 mg tablet Take 1 tablet (10 mg total) by mouth 3 (three) times a day if needed. Active acetaminophen (TYLENOL 8 HOUR) 650 mg 8 hr tablet Take 1 tablet (650 mg total) by mouth 1 (one) time each day if needed. 09/23/2023 Active meloxicam (MOBIC) 15 mg tablet Take 1 tablet (15 mg total) by mouth 1 (one) time each day after dinner. 90 tablet 11/07/2024 Active Active Problems Problem Noted Date Diagnosed Date Palpitation 05/06/2023 Overview (03/23/2024): Last Assessment & Plan: The patient has been noted episodes of palpitations. His episode of palpitation usually last for a few seconds per episode. Recent Holter monitor showed evidence of frequent PACs with a PAC burden of 6.2%. No sustained arrhythmias were noted. Given the description of her symptoms on her monitor results, it is likely that the patient's symptoms are secondary to symptomatic PACs. During today's visit, we discussed the usual triggers associated with symptomatic premature beats. Specifically, we discussed the importance of limiting caffeine intake, limiting alcohol consumption, ensuring an adequate sleep hygiene, and reducing stress. The patient will implement these lifestyle modifications. Will also order an echocardiogram to evaluate for any underlying structural heart disease that may be contributing to her frequent PACs. The patient will be reevaluated in our office after the tests are completed. If she continues to have symptoms despite lifestyle modifications, then we will consider implementation of beta-giovani therapy. 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 10/02/2012 Overview (03/23/2024): Colposcopy [facility] IMO update Encounters Date Type Department Care Team Description 11/07/2024 10:18 AM EDT - 11/07/2024 11:59 PM EDT Hospital Encounter [address] [phone] Acute pain of left knee Discharge Disposition: Home or Self Care 11/07/2024 10:00 AM EDT Office Visit Adult [address] [phone] Niall Bañuelos PA Acute pain of left knee (Primary Dx); Skin lesion 11/06/2024 Nurse Triage Adult Medicine [address] [phone] Carrillo Hanna MD from Last 3 Months Immunizations Name Administration Dates Next Due HPV, Quadrivalent 11/17/2011,08/24/2011 Influenza Quadravalent, MDCK , 0.5ml, preservative free (Flucelvax) 6mo and older 02/25/2022 Influenza Quadravalent, MDCK , 0.5ml, with preservative (Flucelvax) 6mo and older 03/07/2020 PPD Test 10/25/2018,10/12/2017 Tdap Tetanus diptheria acell ular pertussis (Boostrix; Adacel) 7yo and older 09/28/2012 Surgical History Surgery Date Site/Laterality Comments COLPOSCOPY 08/31/12 PROCEDURE: UT COLPOSCOPY ENTIRE VAGINA W/VAGINA/CERVIX BX Medical History Medical History Date Comments Historical Medical DX DX:HSIL (h igh grade squamous intraepithelial lesion) on Pap smear; COMMENT: Jenny Women's Family History Medical History Relation Name Comments Other: CP Son 1 Breast cancer Neg Hx Colon cancer Neg Hx Heart attack Neg Hx Ovarian cancer Neg Hx Uterine cancer Neg Hx Relation Name Status Comments Daughter Alive 2010; Magda fan; healthy Father Maternal Grandfather Maternal Grandmother Mother Paternal Grandfather Paternal Grandmother Son 1 Alive 2002; Usha knapp; premature Son 2 Alive 2007; Jatinder palma [place]; cerebral palsy Social History Tobacco Use Types Packs/Day Years Used Date Smoking Tobacco: Never Smokeless Tobacco: Never Tobacco Cessation:Counseling Given: Not Answered Alcohol Use Standard Drinks/Week Comments Yes 0 (1 standard drink = 0.6 oz pur e alcohol) Comments No Sex and Gender Information Value Date Recorded Sex Assigned at Not on file Legal Sex Female 4:36 AM EST Gender Identity Not on file Sexual Orientation Not on file Obstetrics History Last Filed Vital Signs Vital Sign Reading Time Taken Comments Blood Pressure 92/60 11/07/2024 10:02 AM EDT Pulse 70 11/07/2024 10:02 AM EDT Temperature 36.4 C (97.6 F) 11/07/2024 10:02 AM EDT Respiratory Rate - - Oxygen Saturation - - Inhaled Oxygen Concentration - - Weight 58.5 kg (129 lb) 11/07/2024 10:02 AM EDT Height 154.9 cm (5' 1 ) 11/07/2024 10:02 AM EDT Body Mass Index 24.37 11/07/2024 10:02 AM EDT Plan of Treatment Health Maintenance Due Date Last Done Comments Hepatitis B Vaccines (1 of 3 - 19+ 3-dose series) 2005 HPV Vaccines (3 - 3-dose series) 02/23/2012 11/17/2011, 08/24/2011 Cervical Cancer Screening: P ap Smear 06/14/2015 06/14/2012 HIV Screening 04/11/2022 Hepatitis C Screening 04/11/2022 Social Influencers of Health Screening 04/11/2022 DTaP,Tdap,and Td Vaccines (3 - Td or Tdap) 09/28/2022 09/28/2012, 06/23/2010 Depression Screening 05/09/2024 08/24/2023 COVID-19 Vaccine (3 - 2024-2 6 season) 2025 03/02/2021, 02/09/2021 Influenza Vaccine (#1) 2025 2, 03/07/2020 Cholesterol Screening (Lipid Panel) 12/17/2026 12/17/2021 HIB Vaccines Aged Out No longer eligi ble based on patient's age to complete this topic Hepatitis A Vaccines Aged Out No long er eligible based on patient's age to complete this topic IPV Vaccines Aged Out No longer eligi ble based on patient's age to complete this topic MMR Vaccines Aged Out No longer eligi ble based on patient's age to complete this topic Meningococcal ACWY Vaccine Aged Out N o longer eligible based on patient's age to complete this topic Meningococcal B Vaccine Aged Out No l onger eligible based on patient's age to complete this topic Pneumococcal Vaccine: Pediatrics (0 to 5 Years) and At-Risk Patients (6 to 49 Years) Aged Out No longer eligible b ased on patient's age to complete this topic RSV Immunization Patients Under 20 months Aged Out No longer eligible b ased on patient's age to complete this topic Varicella Vaccines Aged Out No longer eligible based on patient's age to complete this topic Procedures Procedure Name Priority Date/Time Associated Diagnosis Comments XR KNEE 4+ VIEWS LEFT Routine 11/07/2024 10:24 AM EDT Acute pain of left knee DEPRESSION SCREENING Routine 08/24/2023 LIPID PANEL Routine 12/17/2021 PAP SMEAR Routine 06/14/2012 from Last 3 Months or Most Recently Relevant to Health Maintenance Results * XR Knee 4+ Views Left (11/07/2024 10:24 AM EDT) Anatomical Region Laterality Modality Lower Extremities, Knee [facility] 11/07/2024 2:36 PM EDT Impressions 11/07/2024 2:36 PM EDT No acute fracture or dislocation of the left knee. -------- FINAL REPORT -------- Dictated By: Fantasma Trinidad Dictated Date: 11/07/2024 14:36 ET Assigned Physician: Fantasma Trinidad Reviewed and Electronically Signed By: Fantasma Trinidad Signed Date: 11/07/2024 14:36 ET Workstation ID: [id number] Transcribed By: Self Edit Transcribed Date: 11/07/2024 14:36 ET Narrative 11/07/2024 2:36 PM EDT HISTORY: left knee pain and swelling. no injury TECHNIQUE: 4 views of the left knee COMPARISON: None FINDINGS: No acute fracture or dislocation is seen. There is no joint effusion present. The medial and lateral joint spaces appear normal. Soft tissues are unremarkable. Procedure Note Fantasma Trinidad MD - 11/07/2024 HISTORY: left knee pain and swelling. no injury TECHNIQUE: 4 views of the left knee COMPARISON: None FINDINGS: No acute fracture or dislocation is seen. There is no joint effusionpresent. The medial and lateral joint spaces appear normal. Soft tissuesare unremarkable. IMPRESSION: No acute fracture or dislocation of the left knee. -------- FINAL REPORT -------- Dictated By: Fantasma Trinidad Dictated Date: 11/07/2024 14:36 ET Assigned Physician: Fantasma Trinidad Reviewed and Electronically Signed By: Fantasma Trinidad Signed Date: 11/07/2024 14:36 ET Workstation ID: [id number] Transcribed By: Self Edit Transcribed Date: 11/07/2024 14:36 ET Niall MENDOZA IMG XR PROCEDURES Final Result * Depression Screening (08/24/2023) Pathologist [facility] Depression Screening abstracted Historical Provider HEALTH MAINTENANCE Final Result * Lipid panel (12/17/2021) LDL/HDL Ratio 3 <=4 Triglycerides 93 <=150 mg/dL Cholesterol 153 <=200 mg/dL HDL 50 >=40 mg/dL LDL Cholesterol 85 <=100 mg/dL Blood Venous blood specimen / Unknown Historical Provider LAB BLOOD ORDERABLES Kenisha l Result * Pap Smear (06/14/2012) Pap smear no interpretation , abstracted Historical Provider HEALTH MAINTENANCE Final Result from Last 3 Months or Most Recently Relevant to Health Maintenance [place] [address] [place] [address] [employer] PLAN Care Teams Web Content Developer Relationship Specialty Start Date End Date Carrillo Hanna MD [address] [place] [address] [phone] PCP - General Internal Medicine 03/09/24
== END 2025-01-24 16:43 | disposition home or self-care (01) ==
PROVIDERS: Physician Assistant Medical; Emergency Provider Emergency Medicine; PCP Internal Medicine
DX: J02.9 Acute pharyngitis, unspecified (principal); R09.89 Other specified symptoms and signs involving the circulatory and respiratory systems; R05.9 Cough, unspecified; M79.10 Myalgia, unspecified site; Z11.52 Encounter for screening for COVID-19
CPT/HCPCS: 87502; 87635; 87651; 99282; 99283

== ENCOUNTER 2025-05-06 10:36 | Emergency (ER) | payer OTHER, SELFPAY ==
--- NOTE | ~2025-05-06 | XR_ITS ---
EXAMINATION: XR CHEST 2 VIEWS HISTORY: cough COMPARISON: There are no prior studies available for comparison. FINDINGS: PA and lateral views of the chest are submitted. The lungs are expanded and clear. There is no pleural effusion, pneumothorax, or pulmonary vascular congestion. The heart is normal in size. The bones are intact. XR/XR chest 2V IMPRESSION: Normal examination of the chest. Electronically signed by: Willem Bolanos MD 05/06/2025 11:11 AM SB
[2025-05-06 10:54] VITALS: BP 110/61; PULSE 106; RESP 18; TEMP 37.2; O2SAT 100; BMI 24.5
--- NOTE | 2025-05-06 10:57 | ED_ITS ---
HPI - General Adult General Chief complaint: Upper Respiratory Symptoms Stated complaint: Sore Throat, Ear Pain Time Seen by Provider: 05/06/25 13:14 Source: patient Mode of arrival: ambulatory Limitations: no limitations History of Present Illness ED Provider: Danielle De Luna PA-C HPI narrative: Patient is a 39 year old female with a history of uterine cancer presenting to the emergency department today with right ear pain, headache, and a cough. Patient states that over the last day she has had a headache, right ear pain, and a cough. Patient denies any other complaints at this time. Onset (ago): day(s) Relieving factors: none Exacerbating factors: none Treatments prior to arrival: none Related Data Previous Rx's ?Medication ?Instructions ?Recorded ciprofloxacin HCl 500 mg tablet 500 mg PO BID #20 tabs 01/17/22 (Cipro) metronidazole 500 mg tablet 500 mg PO BID 10 days #20 tabs 01/17/22 tramadol 50 mg tablet 50 mg PO Q6H PRN pain #20 ta bs 01/17/22 naproxen 500 mg tablet (Naprosyn) 500 mg PO BID PRN PA IN #20 tabs 07/21/22 nitrofurantoin 100 mg PO Q12H 7 days #14 ca ps 05/08/23 monohydrate/macrocrystals 100 mg capsule (Macrobid) phenazopyridine 200 mg tablet 200 mg PO TID PRN pain 6 doses #6 05/08/23 (Pyridium) tabs naproxen 500 mg tablet 500 mg PO Q12H PRN pain (sca le 02/23/24 score 4-6) #20 tabs Allergies Allergy/AdvReac Type Severity Reaction Status Date / Time No Known Allergies Allergy Verified 05/06/25 10:55 Review of Systems Constitutional: Constitutional: Reports as per HPI Eyes: Eyes: Reports as per HPI ENT: Reports as per HPI Cardiovascular: Cardiovascular: Reports as per HPI Respiratory: Respiratory: Reports as per HPI Gastrointestinal: Gastrointestinal: Reports as per HPI Genitourinary: Genitourinary: Reports as per HPI Musculoskeletal: Musculoskeletal: Reports as per HPI Integumentary/Breasts: Skin/Breast: Reports as per HPI Neurologic: Reports as per HPI Psychiatric: Psychiatric: Reports as per HPI Endocrine: Endocrine: Reports as per HPI Hematologic/Lymphatic: Hematologic/Lymphatic: Reports as per HPI Allergic/Immunologic: Allergic/Immunologic: Reports as per HPI [facility] Past Medical History Attestation statement: The following information was validated with the patient. Source: old records reviewed and nursing notes reviewed Medical History Muscle spasm of back COVID-19 Uterine cancer Surgical History H/O: hysterectomy Social History Social History Alcohol intake: never Advance Directives: No Advance Directives Information Provided: No Do you have a plan to hurt others: No Plan Physical Exam ED Vital Signs: Vital Signs - 24 hr 05/06/25 10:54 05/06/25 14:16 Temperature 99 F 99 F Pulse Rate 106 H 106 H Respiratory Rate 18 18 Blood Pressure 110/61 110/61 Pulse Oximetry 100 100 Oxygen Delivery Method Room Air BMI result Body Mass Index 24.5 Const General: cooperative, alert and awake Orientation/consciousness: patient oriented x3 HENMT Head: Yes normal to inspection and Yes atraumatic Ears: hearing grossly normal bilaterally, external ears normal and TM's normal bilaterally General nose exam: Normal external nose present, no nasal discharge noted and no epistaxis Face and sinus: Yes normal facial exam, No abrasion and No laceration Mouth: Normal oral and palatal mucosa present, no drooling and no muffled voice Eyes General: appearance normal, both eyes and all related structures Periorbital: periorbital findings normal Eyelids: Yes eyelids normal Conjunctivae: conjunctivae normal Pupils: Equal, round and reactive pupils present EOM: EOMs intact bilaterally Resp Effort & Inspection: normal respiratory effort and able to speak in complete sentences Neuro General: patient oriented x3, moves all extremities and CN's II-XI intact bilaterally Cranial nerves: Yes Equal, round and reactive pupils present Cognition (Neuro): normal cognition Extrem General: Yes full ROM Psych Appearance: grossly normal Mental Status: mental status grossly normal Attitude: cooperative Course Course Course Narrative: Rapid medical examination performed in triage by Danielle De Luna PA-C: Patient is a 39 year old female presenting to the emergency department with headache, cough, and sore throat. Detailed physical exam and review of systems are deferred to the associate professor of geology. Swabs and x-ray ordered. Patient placed back in the waiting room pending room availability and results. Medical Decision Making Medical Decision Making [facility] Narrative: Patient is a 39 year old female with a history of uterine cancer presenting to the emergency department today with right ear pain, headache, and a cough. Patient's physical exam was as noted in the physical exam portion of this note. Patient's chest x-ray showed no acute process. Patient's influenza testing was positive. Patient's clinical presentation is most consistent with right ear pain secondary to influenza. I explained my physical exam findings as well as all test results to the bonnie ent. I answered all questions asked by the patient. I stressed the importance of the patient taking her medication as directed (either prescribed or as the over the counter packaging recommends). I stressed the importance of the patient following up with her primary care provider. I stressed the importance of the patient returning to the emergency department immediately if her symptoms were to worsen or if she were to develop any dizziness, shortness of breath, difficulty breathing, chest pain, blurry vision, loss of vision, nausea, vomiting, abdominal pain, fever, chills, back pain, or any other complaints. Patient verbalized agreement and understanding with this treatment plan and discharge. Differential Diagnosis Differential Diagnoses: The differential diagnosis associated with the presentation includes Headache Influenza RSV COVID-19 Otitis media Viral illness Admission/Observation Consideration of admission/observation: Escalation of care including admission/observation considered Patient would have been admitted to the hospital had her work up had any findings where hospital admission was appropriate and her clinical presentation warranted hospital admission. Lab Data [facility] Lab Attestation statement: I reviewed the patient's lab results. My interpretation of these results are in the MDM Rationale portion of this note. Labs: Lab Results 05/06/25 Range/Units 12:07 Influenza Type A (PCR) POSITIVE A (Negative) Influenza Type B (PCR) NEGATIVE (Negative) RSV RNA Qual (PCR) NEGATIVE (Negative) SARS-CoV-2 RNA (RT-PCR) NEGATIVE (Negative) S. pyogenes GrpA CLARA Negative (Negative) Independent Interpretation I performed an independent interpretation of an: Plain X-Ray Interpretation: My interpretation is in agreement with the radiologist's impression of this imaging study as written below. EXAMINATION: XR CHEST 2 VIEWS HISTORY: cough COMPARISON: There are no prior studies available for comparison. FINDINGS: PA and lateral views of the chest are submitted. The lungs are expanded and clear. There is no pleural effusion, pneumothorax, or pulmonary vascular congestion. The heart is normal in size. The bones are intact. XR/XR chest 2V IMPRESSION: Normal examination of the chest. Electronically signed by: Willem Bolanos MD 05/06/2025 11:11 AM EST RP Dictated By: Willem Bolanos MD Signed By: Electronically signed by Willem Bolanos MD 05/06/25 1111 Radiology Impression Discussion of test interpretation with radiology: I have reviewed the radiologist's reading. Prescription Management I considered prescription management with: Antiviral (I considered prescribing tamiflu however, the patient's current clinical presentation and lack of comorbidities does not warrant this. ) Discharge Plan Discharge Clinical Impression: Influenza Patient Disposition: Home, Self-Care Instructions: Influenza (DC) Additional Instructions: Your influenza testing is positive. IF you are prescribed home medications and/or you are taking over the counter medications at home - it is very important you continue to do so as prescribed / directed unless told otherwise. SI le recetan medicamentos y/o est? tomando medicamentos de venta oly, es muy importante que contin?e haci?ndolo seg?n lo recetado/indicado a menos que le indiquen lo contrario. Follow up with your primary care provider. Return to the emergency department immediately if your symptoms worsen or if you develop any dizziness, shortness of breath, difficulty breathing, chest pain, blurry vision, loss of vision, nausea, vomiting, abdominal pain, fever, chills, back pain, or any other complaints. Sharath?seguimiento?con jones m?dico de atenci?n primaria. Acuda inmediatamente al servicio de urgencias si vipul s?ntomas empeoran o si presenta falta de aliento, dificultad para respirar, dolor tor?cico, mareos, aturdimiento, dolor de espalda, dolor abdominal, fiebre, escalofr?os o cualquier otro s?ntoma. Please see the information below about our Patient Portal. If you are not yet enrolled in the [facility] Patient Portal, you will receive an enrollment email invitation following your visit to any [facility] care setting. You may also self-enroll in the Patient Portal by visiting our website: [email or web address] The following information is required to access the Patient Portal: - Your [facility] Medical Record Number - Your personal home email address (must match what is in your electronic medical record, Registration staff can assist with this) - Name - Date of Capabilities of the Patient Portal: - Message some providers - View upcoming appointments - Access your health summary, medical history, and visit history - View current conditions and allergies - View procedure and lab results - View your medications, including guidelines, side effects, and precautions - Complete pre-appointment questionnaires requested by your provider - Ready summary reports of your office visits and procedures To access the Patient Portal Mobile Juan, follow these directions: - Search mSnap in the Juan Store or [email or web address] Store - Download the Juan - Search for [facility] - Enter your login/password Portal del paciente Si usted no esta inscrito en el portal de pacientes de [facility], recibira rosalinda invitacion de inscripcion despues de jones visita al [facility] o al [facility] via correo electronico. Tambien puede inscribirse voluntariamente en el portal de pacientes visitando nuestra pagina web: [email or web address] La siguiente informacion sera requerida para acceder al portal: - Jones karla de historia medica de [facility] - Jones direccion de correo electronico personal - Nombre - Fecha de nacimiento Capacidades: Las siguientes capacidades estan disponibles en el portal de pacientes: - Enviar mensajes a algunos doctores - Verificar proximas citas - Acceso a jones historial de joaquin, registro medico e historial de visitas - Aaron las condiciones actuales y alergias aaron procedimientos y resultados del laboratorio - Aaron vipul medicamentos, incluyendo las pautas - Efectos secundarios y precauciones - Completar o llenar formularios / cuestionarios de - Citas solicitadas por jones doctor - Leer los resumenes de reportes medicos de vipul visitas y procedimientos [place] acceder a la aplicacion movil: - [facility] [employer] en la Juan Store o Google Play Store - Descargue la aplicacion - [facility] - Ingrese jones nombre de usuario / Contrasena Prescriptions: No Action ciprofloxacin HCl [Cipro] 500 mg tablet 500 mg PO BID Qty: 20 0RF metronidazole 500 mg tablet 500 mg PO BID 10 Days Qty: 20 0RF tramadol 50 mg tablet 50 mg PO Q6H PRN (Reason: pain) Qty: 20 0RF naproxen [Naprosyn] 500 mg tablet 500 mg PO BID PRN (Reason: PAIN) Qty: 20 0RF phenazopyridine [Pyridium] 200 mg tablet 200 mg PO TID PRN (Reason: pain) Qty: 6 6RF nitrofurantoin monohyd/m-cryst [Macrobid] 100 mg capsule 100 mg PO Q12H 7 Days Qty: 14 0RF Rx Instructions: must administer with a meal/food naproxen 500 mg tablet 500 mg PO Q12H PRN (Reason: pain (scale score 4-6)) Qty: 20 0RF Referrals: Carrillo Hanna III, MD [Primary Care Provider, Medical] Interventions: ED Discharge Assessment Last Done: 05/06/25 14:16 Discharge Date/Time: 05/06/25 14:17 Print Language: Slovak
[2025-05-06 12:39] LABS: IDNOW Serial# 58CA691E; Strep A Nucleic Acid Negative (Negative)
[2025-05-06 13:06] LABS: Resp Syncy Virus RNA Qual PCR NEGATIVE (Negative); SARS COV2 PCR INHOUSE NEGATIVE (Negative)
[2025-05-06 14:16] VITALS: BP 110/61; PULSE 106; RESP 18; TEMP 37.2; O2SAT 100
--- OUTSIDE RECORDS SUMMARY | 2025-05-06 15:18 | XMS_ITS | Clinical Summary ---
Author Organization [facility] [employer] [facility] Address [address] [place] [address] Phone Care Team Providers Care Lobsterman Name Role Phone Carrillo Hanna MD Primary Care Provider [phone] Allergies No known active allergies Medications ibuprofen [...] smear of cervix 10/02/2012 Overview (03/23/2024): Colposcopy [facility] IMO update Encounters Date Type Department Care Team Description 05/06/2025 Telephone Adult Medicine [address] [phone] Carrillo Hanna MD from Last 3 Months Immunizations Immunization Administration Dates Next Due HPV, Quadrivalent 11/17/2011,08/24/2011 Influenza Quadravalent, MDCK , 0.5ml, preservative free (Flucelvax) 6mo and older 02/25/2022 Influenza Quadravalent, MDCK , 0.5ml, with preservative (Flucelvax) 6mo and older 03/07/2020 PPD Test 10/25/2018,10/12/2017 Tdap Tetanus diptheria acell ular pertussis (Boostrix; Adacel) 7yo and older 09/28/2012 Surgical History Surgery Date Site/Laterality Comments COLPOSCOPY 08/31/12 PROCEDURE: VT COLPOSCOPY ENTIRE VAGINA W/VAGINA/CERVIX BX Medical History [...] Name Status Comments Daughter Alive 2010; Magda Jluis fan; healthy Father Maternal Grandfather Maternal Grandmother Mother Paternal Grandfather Paternal Grandmother Son 1 Alive 2002; Usha knapp; premature Son 2 Alive 2007; Jatinder Mederos; cerebral palsy Social History Tobacco Use Types [...] on file Sexual Orientation Not on file Last Filed Vital Signs Vital Sign Reading [...] 11/07/2024 10:02 AM EDT Plan of Treatment Upcoming Encounters Date Type Department Care Team (Late st Contact Info) Description 05/15/2025 8:30 AM EST Office Visit Adult Medicine [address] [phone] Ezio Martinez PA [address] [place] [phone] Health Maintenance Due Date Last Done Comments [...] 03/07/2020 Cholesterol Screening (Lipid Panel) 12/17/2026 12/17/2021 RSV Immunization Adult Patients (1 - 1-dose 75+ series) 2061 HIB Vaccines Aged Out No longer eligi [...] Procedure Name Priority Date/Time Associated Diagnosis Comments DEPRESSION SCREENING Routine 08/24/2023 LIPID PANEL Routine 12/17/2021 PAP SMEAR Routine 06/14/2012 from Last 3 Months or Most Recently Relevant to Health Maintenance Results * Depression Screening (08/24/2023) Pathologist [facility] Depression Screening abstracted Historical Provider HEALTH MAINTENANCE Final Result * Lipid panel (12/17/2021) Pathologist [facility] LDL/HDL Ratio 3 <=4 Triglycerides 93 <=150 mg/dL Cholesterol 153 <=200 mg/dL HDL 50 >=40 mg/dL LDL Cholesterol 85 <=100 mg/dL Blood Venous blood specimen / Unknown Historical Provider LAB BLOOD ORDERABLES Kenisha l Result * Pap Smear (06/14/2012) Pathologist [facility] Pap smear no interpretation , abstracted us Historical Provider HEALTH MAINTENANCE Final Result from Last 3 Months or Most Recently Relevant to Health Maintenance [place] [address] [place] [address] HEALTH PLAN Care Teams Lobsterman Relationship Specialty Start Date End Date Carrillo Hanna MD [address] [place] [phone] PCP - General Internal Medicine 03/09/24
--- OUTSIDE RECORDS SUMMARY | 2025-05-06 15:18 | XMS_ITS | Encounter Summary ---
Author Organization [facility] Address [address] [place] [address] Care Team Providers Care Powerhouse Mechanic Helper Name Role Phone Carrillo Hanna MD Primary Care Provider [phone] Reason for Visit * Reason Onset Date Comments Hospital Follow-up 05/06/2025 Encounter Details Date Type Department Care Team (Late st Contact Info) Description 05/06/2025 Telephone Adult Medicine [address] [phone] Carrillo Hanna MD [address] [place] [address] Social History Tobacco Use Types Packs/Day Years Used Date Smoking Tobacco: Never Smokeless Tobacco: Never Alcohol Use Standard Drinks/Week Comments Yes 0 (1 standard drink = 0.6 oz pur e alcohol) Comments No Sex and Gender Information Value Date Recorded Sex Assigned at Not on file Legal Sex Female 4:36 AM EST Gender Identity Not on file Sexual Orientation Not on file documented as of this encounter Progress Notes * Delfino Plasencia RN - 05/06/2025 2:43 PM EST Called and spoke with pt. Pt tested positive for flu today in er. Discuss nursing advise for sx. Ptstill wants fu fu for 05/15 for soonest with care team. * Shelli Martinez - 05/06/2025 2:18 PM EST Hospital/ER follow up appointment needed Hospital patient was treated at: [facility] Was this only an ER visit or was the patient admitted to the hospital? ER Visit only Date of visit if ER visit only: 05/06/25 If patient was admitted what was the date of discharge? Reason/diagnosis for visit or stay: Flu symptoms When was the patient told to follow up? [facility]MA Was visit or stay related to an injury? If yes, what was the date of injury (DOI)? No If yes, was the injury due to: Not 3rd libertarian related documented in this encounter Plan of Treatment Upcoming Encounters Date Type Department Care Team (Late st Contact Info) Description 05/15/2025 8:30 AM EST Office Visit Adult Medicine [address] [phone] Ezio Martinez PA [address] [place] [address] documented as of this encounter Visit Diagnoses Not on filedocumented in this encounter Care Teams Powerhouse Mechanic Helper Relationship Specialty Start Date End Date Carrillo Hanna MD [address] [place] [address] PCP - General Internal Medicine 03/09/24 documented as of this encounter
== END 2025-05-06 14:17 | disposition home or self-care (01) ==
PROVIDERS: Physician Assistant Medical; Emergency Provider Emergency Medicine; PCP Internal Medicine
DX: J10.1 Influenza due to other identified influenza virus with other respiratory manifestations (principal); H92.03 Otalgia, bilateral; R51.9 Headache, unspecified; R05.9 Cough, unspecified; Z03.818 Encounter for observation for suspected exposure to other biological agents ruled out
CPT/HCPCS: 71046; 87637; 87651; 99282; 99283

== ENCOUNTER → 2025-05-06 10:58 | Outpatient (BNV) | payer OTHER, SELFPAY | PROVIDERS: PCP Internal Medicine; Visit Provider Radiology Diagnostic Radiology | DX: R05.9 Cough, unspecified (principal) | CPT/HCPCS: 71046 ==